=== PATIENT | female | born 1930 | race Caucasian/White ===

== ENCOUNTER 2016-11-02 09:15 | Outpatient (CLI) | payer MEDICARE ==
--- OUTSIDE RECORDS SUMMARY | 2016-11-02 09:18 | XMS | Clinical Summary ---
:1930 Author Organization [facility] Address [address] [place] [address] Phone Care Team Providers Name Role Phone , Primary Care Provider Unavailable Allergies Not on File Current Medications Not on file Active Problems Not on file Social History Tobacco Use Types Packs/Day Years Used Date Never Assessed Sex Assigned at Date Recorded Not on file Last Filed Vital Signs Not on file Plan of Treatment Not on file Results Not on filefrom Last 3 Months
--- NOTE | 2016-11-02 10:44 | RAD ---
TWO VIEWS OF THE CHEST: COMPARISON: None. HISTORY: Chest tightness and cough. FINDINGS: Two views of the chest show normal sized cardiomediastinal silhouette. There is no evidence of conso lidation, mass, or pleural effusion. The bones are unremarkable. IMPRESSION: No evidence of acute cardiopulmonary disease. POS: [facility]
== END 2016-11-02 09:16 | disposition home or self-care (01) ==
LOC: SCSRAD 09:15
PROVIDERS: ATTEND Family Medicine
DX: J20.9 Acute bronchitis, unspecified (principal)
CPT/HCPCS: 71020

== ENCOUNTER 2017-03-16 16:46 | Outpatient (CLI) | payer MEDICARE ==
--- NOTE | 2017-03-16 17:28 | RAD ---
AP PELVIS AND LEFT HIP: 03/16/17 HISTORY: Patient fell ten days ago, left hip and groin pain. There is some mild arthritic changes of both hips. There is no signs of fracture. The bony pelvic ri ng is intact. IMPRESSION: No evidence of fracture. POS: [facility]
--- NOTE | 2017-03-19 16:39 | RAD ---
AP PELVIS AND LEFT HIP: 03/16/17 HISTORY: Patient fell ten days ago, left hip and groin pain. There is some mild arthritic changes of both hips. There is no signs of fracture. The bony pelvic ri ng is intact. IMPRESSION: No evidence of fracture.
== END 2017-03-16 16:47 | disposition home or self-care (01) ==
LOC: SCSRAD 16:46
PROVIDERS: ATTEND Physical Medicine & Rehabilitation
DX: M25.552 Pain in left hip (principal); R10.9 Unspecified abdominal pain
CPT/HCPCS: 72170

== ENCOUNTER 2017-11-02 09:01 | Outpatient (CLI) | payer MEDICARE ==
[2017-11-02 09:54] LABS: ALT (SGPT) 10 U/L (8-55); AST (SGOT) 16 U/L (5-34); Albumin 3.8 g/dL (3.4-4.8); Alkaline Phosphatase 101 U/L (40-150); Anion Gap 9 mmol/L (10-20); BUN (Urea Nitrogen) 11 mg/dL (9.8-20.1); Bilirubin, Total 0.5 mg/dL (0.2-1.2); Calc. Creatinine Clearance 0 mL/min (70-130); Calcium 10.2 mg/dL (7.8-10.44); Carbon Dioxide 29 mmol/L (23-31); Chloride 108 mmol/L (98-107); Estimated GFR-MDRD 63; Globulin 2.6 g/dL (2.4-3.5); Glucose 105 mg/dL (83-110); Potassium 4.3 mmol/L (3.5-5.1); Protein, Total 6.4 g/dL (6.0-8.3); Sodium 142 mmol/L (136-145)
[2017-11-02 10:25] LABS: Free T4 (Free Thyroxine) 0.95 ng/dL (0.70-1.48); Thyroid Stimulating Hormone 1.2184 uIU/mL (0.35-4.94)
--- NOTE | 2017-11-02 11:59 | ULT ---
ABDOMINAL ULTRASOUND: HISTORY: Abdominal pain, predominantly right-sided. FINDINGS: Real-time imaging of the upper abdomen shows the gallbladder to have been removed. There are 2 sligh tly complex hepatic cysts demonstrated, the larger measuring 1.5 and the smaller 1.2 cm in size. The y have some internal septations within them. No suspicious solid masses. The spleen measures 10 mm. The common duct is 6-7 mm. Pancreas is obscured. Right and left kidneys are within normal limits of size and not obstructed. A bdominal aorta and IVC regions appear unremarkable. IMPRESSION: 1. Postop cholecystectomy change. 2. A small hepatic cyst. POS: [facility]
== END 2017-11-02 09:02 ==
LOC: SCSULT 09:01
PROVIDERS: ATTEND Family Medicine
DX: E03.9 Hypothyroidism, unspecified (principal); R10.11 Right upper quadrant pain; R74.8 Abnormal levels of other serum enzymes
CPT/HCPCS: 36415; 76700; 80053; 84439; 84443; 84481

== ENCOUNTER 2018-06-18 15:58 | Outpatient (CLI) | payer MEDICARE ==
--- NOTE | 2018-06-18 16:15 | RAD ---
THREE VIEWS OF THE THORACIC SPINE 06/18/18 HISTORY: T-spine pain for two months. FINDINGS: Three views of the thoracic spine shows wedge compression deformity of the T11 vertebral body with ap proximately 50% height loss. There may also be slight compression of the T12 vertebral body. The vert ebral bodies demonstrate normal alignment without subluxation. Moderate osteophytes are seen througho ut the thoracic spine. IMPRESSION: T11 compression fracture with possible compression fracture of T12. POS: [facility]
== END 2018-06-18 15:59 | disposition home or self-care (01) ==
LOC: SCSRAD 15:58
PROVIDERS: ATTEND Family Medicine
DX: M54.6 Pain in thoracic spine (principal); S22.089A Unspecified fracture of T11-T12 vertebra, initial encounter for closed fracture
CPT/HCPCS: 72072

== ENCOUNTER 2018-12-19 09:36 | Outpatient (CLI) | payer MEDICARE ==
[~2018-12-19 09:36] MED LIST: Iopamidol 300 61% 100 ML VIAL FS ONE
[2018-12-19 10:26] LABS: ALT (SGPT) 16 U/L (8-55); AST (SGOT) 27 U/L (5-34); Albumin 4.2 g/dL (3.4-4.8); Alkaline Phosphatase 100 U/L (40-110); Anion Gap 12 mmol/L (10-20); BUN (Urea Nitrogen) 11 mg/dL (9.8-20.1); Bilirubin, Total 0.5 mg/dL (0.2-1.2); Calc. Creatinine Clearance 0 mL/min (70-130); Calcium 10.2 mg/dL (7.8-10.44); Carbon Dioxide 29 mmol/L (23-31); Chloride 105 mmol/L (98-107); Estimated GFR-MDRD 46; Globulin 2.6 g/dL (2.4-3.5); Glucose 100 mg/dL (83-110); Potassium 4.1 mmol/L (3.5-5.1); Protein, Total 6.8 g/dL (6.0-8.3); Sodium 142 mmol/L (136-145)
[2018-12-19 10:50] LABS: #Basophils 0.1 thou/uL (0.0-0.2); #Eosinphils 0.1 thou/uL (0.0-0.7); #Lymphocytes 1.5 thou/uL (1.20-3.40); #Monocytes 0.7 thou/uL (0.11-0.59); %Basophils 1.8 % (0.0-1.0); %Eosinophils 1.7 % (0.0-10.0); %Lymphocytes 20.6 % (21.0-51.0); %Monocytes 8.8 % (0.0-10.0); %Neutrophils 67.1 % (42.0-75.0); Elliptocytes SLIGHT = 2-5 cells (100X) (0-1/hpf); Hemoglobin 7.6 g/dL (12.0-16.0); Hypochromia MARKED = >30 cells (100X) (0-5/hpf); MDiff Complete? YES; Mean Corpuscular HGB CONC 28.7 g/dL (32.0-36.0); Mean Corpuscular Hemoglobin 19.3 pg (27.0-31.0); Mean Corpuscular Volume 67.2 fL (78.0-98.0); Mean Platelet Volume 7.9 fL (7.4-10.4); Microcytosis MARKED = >30 cells (100X) (0-5/hpf); Platelet Count 302 thou/uL (130-400); RBC Distribution Width 15.6 % (11.5-14.5); Red Blood Cell (RBC) Count 3.94 mill/uL (4.20-5.40); Reflex for Review?? YES; White Blood Cell (WBC) Count 7.4 thou/uL (4.8-10.8)
--- NOTE | 2018-12-19 14:58 | CT ---
CT of abdomen and pelvis: 12/19/2018 COMPARISON: None HISTORY: Abdominal pain, altered bowel function TECHNIQUE: Axial CT imaging at 5 mm intervals from lung bases through pubic symphysis with intravenou s and oral contrast. Coronal and sagittal reformatted imaging obtained. FINDINGS: The imaged lung bases appear unremarkable. No free intraperitoneal air or fluid. There is a cyst within the left lobe of the liver measuring 1.7 cm and within the right lobe of the l iver measuring 1.3 cm. There is a peripheral small hypodense nonspecific lesion within the anterolateral aspect of the left lobe of the liver on axial image 17 measuring 1 cm. Its Hounsfield u nits are greater than expected for a cyst. The spleen, pancreas, and kidneys are grossly unremarkable. There is a small sliding-type hiatal hernia. There is a left adrenal nodule measuring 1.4 cm, with Hounsfield units of less than 0, consistent wit h an adrenal adenoma. There is a probable tiny subcentimeter right adrenal nodule, too small to characterize. There is diverticulosis of the sigmoid colon. There is a focal area of prominent wall thickening of the sigmoid colon within the inferior posterior aspect of the pelvis measuring 5-6 cm in length. This is best seen on axial image 73. In addition, there is prominent circumferential wall thickening involving the descending colon in the mid and dist al region. This area of prominent colonic wall thickening measures approximately 9 cm in length. No significant pericolonic fat stranding is seen. The patient reports a history of appendectomy. No evid ence for bowel obstruction. Multifocal scattered atherosclerotic calcification of the abdominal aorta and its branches noted. No abdominal or pelvic lymphadenopathy. Multilevel lumbar spine degenerative change present. No worrisome lytic or blastic bone lesion. Chron ic appearing fracture of T11 noted. IMPRESSION: There are areas of circumferential wall thickening of the colon, including the mid/distal descending colon and the sigmoid colon. Findings may be on the basis of nonspecific multifocal colitis. Malignancy, particularly within the sigmoid colon, is a possibility. Direct visualization vi a colonoscopy is advised. Nonspecific hypodense lesion within the left lobe of the liver which may be definitively characterize d with CT or MRI of abdomen with and without contrast utilizing a hepatic mass protocol. CODE T
== END 2018-12-19 09:37 | disposition home or self-care (01) ==
LOC: SCSCT 09:36
PROVIDERS: ATTEND Internal Medicine Gastroenterology
DX: R19.4 Change in bowel habit (principal); R10.9 Unspecified abdominal pain; K76.9 Liver disease, unspecified
CPT/HCPCS: 74177; 80053; 85025; 85060

== ENCOUNTER 2018-12-20 18:10 | Inpatient (IN) | payer MEDICARE ==
[2018-12-20] MEDS ORDERED: Senokot S 8.6-50 MG TAB PO PRN (19:34)
[2018-12-20] MEDS ORDERED: Acetaminophen 325 MG TAB PO PRN (19:34)
[2018-12-20] MEDS ORDERED: Sodium Chloride 0.9% 1,000 ML IV SCH (19:45)
[2018-12-20 19:54] VITALS: BMI 27.9
[2018-12-20 20:03] LABS: #Basophils 0.1 thou/uL (0.0-0.2); #Eosinphils 0.1 thou/uL (0.0-0.7); #Lymphocytes 1.8 thou/uL (1.20-3.40); #Monocytes 0.8 thou/uL (0.11-0.59); #Neutrophils 4.2 thou/uL (1.40-6.50); %Basophils 1.3 % (0.0-1.0); %Eosinophils 1.4 % (0.0-10.0); %Lymphocytes 25.9 % (21.0-51.0); %Monocytes 11.5 % (0.0-10.0); %Neutrophils 59.9 % (42.0-75.0); Hemoglobin 7.6 g/dL (12.0-16.0); Mean Corpuscular HGB CONC 31.4 g/dL (32.0-36.0); Mean Corpuscular Hemoglobin 20.6 pg (27.0-31.0); Mean Corpuscular Volume 65.7 fL (78.0-98.0); Mean Platelet Volume 8.8 fL (7.4-10.4); Platelet Count 301 thou/uL (130-400); RBC Distribution Width 15.6 % (11.5-14.5); Red Blood Cell (RBC) Count 3.67 mill/uL (4.20-5.40); Reticulocyte Count 1.8 % (0.5-1.5); White Blood Cell (WBC) Count 7.1 thou/uL (4.8-10.8)
[2018-12-20 20:26] LABS: Anion Gap 12 mmol/L (10-20); BUN (Urea Nitrogen) 11 mg/dL (9.8-20.1); Calc. Creatinine Clearance 47 mL/min (70-130); Calcium 9.9 mg/dL (7.8-10.44); Carbon Dioxide 25 mmol/L (23-31); Chloride 108 mmol/L (98-107); Estimated GFR-MDRD 53; Glucose 88 mg/dL (83-110); Iron 13 ug/dL (50-170); Potassium 3.9 mmol/L (3.5-5.1); Sodium 141 mmol/L (136-145)
[2018-12-20] MEDS ORDERED: ALPRAZolam 0.5 MG TAB PO SCH (21:30)
[2018-12-20] MEDS: Piperacillin/Tazobactam 3.375 GM in Sodium Chloride 0.9% 100 ML IVPB SCH (21:40)
[2018-12-20] MEDS ORDERED: Melatonin 3 MG TAB PO PRN (22:42)
--- NOTE | 2018-12-21 01:02 | HP ---
PRIMARY CARE PROVIDER: Dr. Rodriguez. CHIEF COMPLAINT: Dizziness, diarrhea, and abdominal pain. HISTORY OF PRESENT ILLNESS: This is an 88-year-old female, who initially presents to [facility] after undergoing recent evaluation for persistent abdominal pain with intermittent diarrhea and blood in the stool. The patient states she initially had diarrhea that began soon after 2018 with multiple bouts of watery stool. The patient states she took [id number] remedies with decrease in stool frequency; however, admits to intermittent bouts of diarrhea increasing over the last several weeks. The patient also noted rust colored stool with pink discoloration in the toilet after defecating. The patient denied any dysuria, documented fever, chills, or flank pain. The patient admits to associated decreased appetite with approximate 10+ pound weight loss over the last several months. The patient has been evaluated by her leasing director, Dr. Tena, undergoing CAT scan imaging of her abdomen showing evidence of circumferential wall thickening in the mid and descending colon as well as sigmoid distribution. The patient was also noted on metabolic screening with a hemoglobin of 7.6, previously documented 13.3 on 11/20/2017. The patient states her last endoscopy was approximately 10 years prior to this evaluation and interpreted as negative. The patient denies any associated chest pain, shortness of breath, or recent fall. The patient does admit to increased fatigue, weakness, and general malaise. PAST MEDICAL HISTORY: 1. Hypothyroidism. 2. Chronic kidney disease, stage 3. 3. Hypertension. 4. Gastroesophageal reflux disease. 5. Anxiety. PAST SURGICAL HISTORY: Status post colonoscopy in 2009 with negative findings. CURRENT MEDICATIONS: 1. Citracal one tablet p.o. daily. 2. Ciprofloxacin 500 mg p.o. b.i.d. 3. Flagyl 500 mg p.o. t.i.d. 4. Rosie-D one tablet p.o. daily p.r.n. 5. Lasix 20 mg p.o. daily p.r.n. 6. Lactobacillus one tablet p.o. daily. 7. Levothyroxine 50 mcg p.o. daily. 8. Losartan 100 mg p.o. daily. 9. Melatonin 5 mg p.o. at bedtime p.r.n. 10. Metoprolol 50 mg p.o. daily. 11. Multivitamin 1 tablet p.o. daily. 12. Protonix 20 mg p.o. daily. 13. Ambien 5 mg p.o. at bedtime p.r.n. insomnia. ALLERGIES: ASPIRIN CAUSING INCREASED BRUISING. FAMILY HISTORY: No inheritable diseases per patient report. SOCIAL HISTORY: Resides in [place], [place] in Independent Living. Accompanied by her son in the hospital. No current alcohol, tobacco, or illicit drug use. Functional of all activities of daily living. Relocated to the [facility] area within the last 2 years. . REVIEW OF SYSTEMS: CONSTITUTIONAL: Negative for weight loss or gain, ability to conduct usual activities. SKIN: Negative for rash, itching. EYES: Negative for double vision, pain. ENT/MOUTH: Negative for nose bleeding, neck stiffness, pain, tenderness. CARDIOVASCULAR: Negative for palpitations, dyspnea on exertion, orthopnea. RESPIRATORY: Negative for shortness of breath, wheezing, cough, hemoptysis, fever or night sweats. GASTROINTESTINAL: Negative for poor appetite, abdominal pain, heartburn, nausea, vomiting, constipation, or diarrhea. GENITOURINARY: Negative for urgency, frequency, dysuria, nocturia. MUSCULOSKELETAL: Negative for pain, swelling. NEUROLOGIC/PSYCHIATRIC: Negative for anxiety, depression. ALLERGY/IMMUNOLOGIC: Negative for skin rash, bleeding tendency. Otherwise negative except as stated per HPI. PHYSICAL EXAMINATION: VITAL SIGNS: On admission, blood pressure 121/71, pulse 71, respiratory rate 18, temperature 98.7 degrees Fahrenheit, O2 saturation 98% on room air. GENERAL APPEARANCE: This is an 88-year-old female, appearing younger than stated age. Alert and oriented x3, pleasant, responsive, in no acute distress. HEENT: Pupils are equal, round, reactive to light and accommodation. Extraocular muscles are intact. No scleral icterus. No conjunctival injection. Nares are patent. OP is clear. Teeth in good repair. NECK: Supple. No cervical adenopathy. No thyromegaly. No carotid bruits. No JVD appreciated. Cervical spine with full active and passive range of motion. No meningeal signs noted. CHEST: Lungs are clear to auscultation bilaterally. CARDIOVASCULAR: S1 and S2 with 2/6 systolic ejection murmur in the left upper sternal border. ABDOMEN: Rounded, soft, nontender, and nondistended. Bowel sounds are positive in all 4 quadrants. There is no hepatosplenomegaly. No abdominal bruits. No rebound or guarding appreciated. EXTREMITIES: Warm and dry with fair turgor. No clubbing, cyanosis, or asymmetric edema appreciated. Pulses palpable distally at the dorsalis pedis, posterior tibial, and popliteal arteries bilaterally. Capillary refill less than 2 seconds. NEUROLOGIC: Cranial nerves 2 through 12 are grossly intact. No focal or lateralizing signs appreciated. PERTINENT LABORATORY AND X-RAY FINDINGS: Sodium 141, potassium 3.9, chloride 108, CO2 of 25, BUN 11, creatinine 0.99, estimated GFR 53, glucose 88, calcium 9.9. Serum iron level 13, ferritin less than 2. CBC showed a white blood cell count of 7.1, hemoglobin is 7.6, previously noted 13.3 on 11/20/2017. MCV 66, platelet count 301 with normal differential. Reticulocyte count 1.8. CT of the abdomen and pelvis dated 12/19/2018, showed circumferential wall thickening of the mid and descending colon and sigmoid colon. Nonspecific hypodense lesion in the left lobe of the liver. ASSESSMENT AND PLAN: 1. Symptomatic anemia with microcytic indices and iron deficiency. We will admit to the medical floor. Type and cross match for 1 unit of packed red blood cells and transfuse when available. IV iron infusion x1. Exact etiology of the anemia unclear, likely related to colitis of unclear significance. See #2 below. Repeat CBC in the a.m. 2. Colitis. Questionable infectious process versus inflammatory versus tumor. We will consult GI Service for evaluation and consideration for a colonoscopy. Continue empiric antibiotic therapy with Zosyn 3.375 g IV q.6 hours. Continue IV fluids at 50 mL/h. 3. Chronic kidney disease, stage 3. Avoid nephrotoxic agents and limit contrast exposure. Repeat creatinine in the a.m. 4. Hypertension. Resume home blood pressure regimen and monitor clinical response. 5. Hypothyroidism. Continue levothyroxine 50 mcg daily. 6. Gastroesophageal reflux disease. Continue Protonix 20 mg daily. 7. Prophylaxis. SCDs while in bed. Protonix 40 mg p.o. daily. CODE STATUS: Full. Surrogate medical decision maker is patient's son, Dr. Stephanie Gee. Job ID: [id number]
[2018-12-21] MEDS: Zolpidem Tartrate 5 MG TAB PO PRN (01:51)
[2018-12-21] MEDS: Piperacillin/Tazobactam 3.375 GM in Sodium Chloride 0.9% 100 ML IVPB SCH ×4 (04:17→21:05)
[2018-12-21 05:38] LABS: #Basophils 0.1 thou/uL (0.0-0.2); #Eosinphils 0.1 thou/uL (0.0-0.7); #Lymphocytes 2.2 thou/uL (1.20-3.40); #Monocytes 0.8 thou/uL (0.11-0.59); #Neutrophils 2.7 thou/uL (1.40-6.50); %Basophils 1.6 % (0.0-1.0); %Eosinophils 2.3 % (0.0-10.0); %Monocytes 13.8 % (0.0-10.0); %Neutrophils 45.4 % (42.0-75.0); Hemoglobin 7.9 g/dL (12.0-16.0); Mean Corpuscular HGB CONC 31.8 g/dL (32.0-36.0); Mean Corpuscular Hemoglobin 21.9 pg (27.0-31.0); Mean Corpuscular Volume 68.9 fL (78.0-98.0); Mean Platelet Volume 8.3 fL (7.4-10.4); Platelet Count 211 thou/uL (130-400); RBC Distribution Width 17.9 % (11.5-14.5); Red Blood Cell (RBC) Count 3.59 mill/uL (4.20-5.40); White Blood Cell (WBC) Count 5.9 thou/uL (4.8-10.8)
[2018-12-21 05:57] LABS: Anion Gap 7 mmol/L (10-20); BUN (Urea Nitrogen) 9 mg/dL (9.8-20.1); Calc. Creatinine Clearance 46 mL/min (70-130); Calcium 9.4 mg/dL (7.8-10.44); Carbon Dioxide 28 mmol/L (23-31); Chloride 111 mmol/L (98-107); Estimated GFR-MDRD 52; Glucose 91 mg/dL (83-110); Potassium 3.9 mmol/L (3.5-5.1); Sodium 142 mmol/L (136-145)
[2018-12-21] MEDS: Levothyroxine Sodium 50 MCG TAB PO SCH (06:40)
[2018-12-21] MEDS ORDERED: FLU VACC TS2019-20(65YR UP)/PF 180 MCG/0.5 ML SYRINGE IM ONE (09:00)
[2018-12-21] MEDS ORDERED: Iron Sucrose Complex 100 MG in Sodium Chloride 0.9% 100 ML IVPB SCH (09:00)
[2018-12-21] MEDS: Multivitamin W/ Minerals 1 TAB PO SCH (09:03)
[2018-12-21] MEDS: Losartan 25 MG TAB PO SCH (10:30)
[2018-12-21] MEDS: Pantoprazole 40 MG GRANULES PACKET PO SCH (11:13)
--- NOTE | 2018-12-21 13:05 | PDOC.HOSPP ---
- Subjective Encounter Date: 12/21/18 Encounter Time: 11:02 Subjective: 88 y/o male with Hypothyroidism, CKD, HTN and GERd admitted with worsening frequent loose stools associated with abdominal pain, dizziness and weight loss. Found to habve severe microcytic anemia. Ct showed thickening of descending and sigmoid colon. Feeling better. No fever. - Objective Vital Signs & Weight: Vital Signs (12 hours) Temp Pulse Pulse Resp BP BP Pulse Ox 12/21/18 11:18 97.3 F L 63 16 164/77 H 98 12/21/18 08:35 98 F 67 14 116/62 97 12/21/18 03:54 98.2 F 64 16 121/67 96 12/21/18 02:55 98.6 F 67 18 118/67 95 Weight Weight 163 lb I&O: 12/20/18 12/21/18 12/22/18 06:59 06:59 06:59 Intake Total 350 1150 Balance 350 1150 Result Diagrams: 12/21/18 05:29 12/21/18 05:29 Hospitalist ROS - Medication Medications: Active Medications Generic Name Dose Route Start Last Admin Trade Name Freq PRN Reason Stop Dose Admin Sodium Chloride 1,000 mls @ 50 mls/hr 12/20/18 19:45 12/20/18 21:34 Normal Saline 0.9% IV 12/21/18 15:44 1,000 mls .Q20H SCOORRO Administration Piperacillin Sod/Tazobactam 100 mls @ 200 mls/hr 12/20/18 22:00 12/21/18 11: 12 Sod 3.375 gm/ Sodium Chloride IVPB 100 mls 0400,1000,1600,2200 SOCORRO Administration Iron/Minerals/Multivitamins 1 tab 12/21/18 09:00 12/21/18 09:03 Theragran M PO 1 tab DAILY SOCORRO Administration Levothyroxine Sodium 50 mcg 12/21/18 07:30 12/21/18 06:40 Synthroid PO 50 mcg DAILY-AC SOCORRO Administration Losartan Potassium 100 mg 12/21/18 09:00 12/21/18 10:30 Cozaar PO Not Given DAILY SOCORRO Metoprolol Succinate 50 mg 12/21/18 07:30 12/21/18 06:40 Toprol Xl PO 50 mg DAILY-AC SOCORRO Administration Pantoprazole Sodium 20 mg 12/21/18 09:00 12/21/18 11:13 Protonix PO 20 mg DAILY SOCORRO Administration Zolpidem Tartrate 5 mg 12/20/18 21:20 12/21/18 01:51 Ambien PO 5 mg HS PRN Administration Insomnia - Exam General Appearance: awake alert Eye: PERRL, anicteric sclera ENT: normocephalic atraumatic Neck: supple, symmetric, no JVD Heart: RRR, murmur present Respiratory: no wheezes, no rales, no ronchi, normal chest expansion Gastrointestinal: soft, non-distended, normal bowel sounds Gastrointestinal - other findings: left lower quadrant tenderness noted Extremities: no cyanosis, no edema Neurological: cranial nerve grossly intact, no focal deficits Psychiatric: A&O x 3 Hosp A/P (1) Colitis Code(s): K52.9 - NONINFECTIVE GASTROENTERITIS AND COLITIS, UNSPECIFIED Status : Acute (2) Iron deficiency anemia due to chronic blood loss Code(s): D50.0 - IRON DEFICIENCY ANEMIA SECONDARY TO BLOOD LOSS (CHRONIC) Status: Acute (3) Hypothyroidism Code(s): E03.9 - HYPOTHYROIDISM, UNSPECIFIED Status: Acute (4) HTN (hypertension) Code(s): I10 - ESSENTIAL (PRIMARY) HYPERTENSION Status: Acute - Plan Continue antibiotiic. Monitor H/H and transfuse as needed IV Iron therapy Colonoscopy planned by GI
[2018-12-21] MEDS ORDERED: GoLYTELY 4,000 ml Bottle PO SCH ×2 (13:15→21:00)
[2018-12-21] MEDS: ALPRAZolam 0.5 MG TAB PO PRN (13:41)
[2018-12-21] MEDS ORDERED: Lidocaine 2% 11 ML SYR TOP PRN (14:33)
--- NOTE | 2018-12-21 18:11 | CON ---
DATE OF CONSULTATION: 12/21/2018 REASON FOR CONSULTATION: Diarrhea, abdominal pain, and abnormal GI imaging. CONSULTING PROVIDER: Cyndi Rodas MD HISTORY OF PRESENT ILLNESS: The patient is an 88-year-old female with past medical history of hypothyroidism, chronic kidney disease stage 3, hypertension, GERD, anxiety, and chronic diarrhea, presenting with complaints of increased abdominal pain and continued diarrhea. She states that she has been having intermittent bouts of lower abdominal pain and diarrhea that has been present since June of 2018. Her pain is described as located in the suprapubic region and characterized as a cramping-type sensation, is intermittent, but will last for hours at a time and reaches a severity of approximately 9/10. The pain does not have any clear exacerbating factors, but has only made better with time, and will completely resolve in between episodes. She had been having semi-frequent episodes since June of 2018, occurring around once every 1 to 2 weeks. However, approximately 1 week ago, she had significant worsening of her abdominal pain that lasted for approximately 2 days, prompting further workup and evaluation (of note, this pain occurs more commonly around 10 a.m. than any other portion of the day). With the increase of her abdominal pain, it prompted her outpatient PCP and dredge pipeman (Dr. Tena) to obtain routine blood work as well as a CT scan of the abdomen, showing iron-deficiency anemia and a possible cecal mass respectively. Given these findings, she was subsequently admitted to the hospital for an expedited workup. She also notes that she has been having increased intermittent diarrhea since June of 2018, having approximately 1 soft bowel movement every 1 to 3 days. She describes her bowel movements primarily as soft but formed, but has been intermittently liquid in consistency, however, more recently, it has been having decreased coloration assuming a more dark/gill coloration or rust coloration that turned water pink within the last week. With the increase in her abdominal pain and possible bleeding in her stool, it then prompted her to seek healthcare evaluation as described. Associated symptoms include increased dizziness, decreased appetite, and an unintentional weight loss of 10 pounds over the last 2 months. She currently denies any nausea, vomiting, fevers, chills, overt hematochezia, melena, hematemesis, dysphagia, or odynophagia. REVIEW OF SYSTEMS: A 10-category review of systems was obtained with all responses negative except for the pertinent positives as listed in HPI. PAST MEDICAL HISTORY: As per HPI. PAST SURGICAL HISTORY: Colonoscopy in 2010 with normal results. FAMILY HISTORY: Denies any GI malignancies. SOCIAL HISTORY: Denies any tobacco, alcohol, or illicit drug use. OUTPATIENT MEDICATIONS: Reviewed. ALLERGIES: ASPIRIN. PHYSICAL EXAMINATION: VITAL SIGNS: Temperature 97.3, pulse 63, blood pressure 164/77, respiratory rate 16, saturating 98% on room air. GENERAL: The patient is lying in bed, in no acute distress. Alert and oriented x4. HEENT/NECK: Normocephalic, atraumatic. Neck is supple. No JVD or scleral icterus noted. CARDIOVASCULAR: Regular rate and rhythm. A 3/6 systolic murmur was heard at the left lower sternal border, but no discernible gallops or rubs. RESPIRATORY: Clear to auscultation bilaterally with no discernible wheezes or rales. ABDOMEN: Normoactive bowel sounds. Soft, nondistended. Tenderness to palpation in the lower abdominal quadrants. EXTREMITIES: No cyanosis, clubbing, or edema. LABORATORY DATA: CBC with a white blood cell count of 5.9, hemoglobin 7.9, hematocrit 24.7, platelets 211, MCV 68.9, and RDW 17.9. Chemistry with a sodium of 142, potassium 3.9, chloride 111, CO2 of 28, BUN 9, creatinine 1, and glucose 91. Iron 13, ferritin less than 2. IMAGING DATA: CT of the abdomen and pelvis was obtained on December 19, 2018, which showed multiple cystic lesions within the left lobe of the liver, measuring between 1.3 and 1.7 cm in size and numbering approximately 4. There was a left adrenal nodule measuring 1.4 cm, consistent with adrenal adenoma, diverticulosis of the sigmoid colon was also noted, but there was a focal area of prominent wall thickening of the sigmoid colon, measuring 5 to 6 cm in length. There was also prominent circumferential wall thickening involving the descending colon, measuring 9 cm in length. Both of these findings concerning for an inflammatory, ischemic, or malignant-type process. ASSESSMENT AND PLAN: The patient is an 88-year-old female with past medical history of hypothyroidism, chronic kidney disease stage 3, hypertension, gastroesophageal reflux disease, anxiety, and chronic diarrhea, presenting with increased left lower abdominal pain, diarrhea, abnormal GI imaging. Lower abdominal pain/abnormal gastrointestinal imaging: The patient has been having chronic lower abdominal pain and diarrhea that have been present since 2018 and characterized as a cramping-type sensation, associated with more semi-solid liquid stools intermittently. However, over the last week, she has had significant worsening of this pain in addition to the appearance of a darker- and rust-colored stools concerning for the presence of blood. Current laboratory workup is consistent with an iron-deficiency anemia along with CT findings concerning for an inflammatory, ischemic, or malignant-type process within the left colon. However, she also has multiple small cystic lesions within the liver concerning for metastatic disease at this time with the colon primary being the more likely source. At this time, with the appearance of an iron-deficiency anemia and findings on CT, it is highly concerning for the presence of a malignancy and requires endoscopic evaluation. RECOMMENDATIONS: 1. We would continue to trend her H and H and transfuse as necessary to maintain an H and H of 7/21. 2. Continue to monitor clinically for signs of active GI bleeding. 3. We would place the patient on a clear liquid diet today and n.p.o. at midnight in preparation for the colonoscopy. 4. We will plan for both EGD and colonoscopy tomorrow for intraluminal evaluation. We will order GoLYTELY prep tonight with split prep dosing. 5. We will follow up on infectious stool studies as a possible origin of her current clinical situation. We will continue to follow. Please call with any questions. Job ID: [id number]
[2018-12-22] MEDS: ALPRAZolam 0.5 MG TAB PO PRN ×3 (00:42→21:04)
[2018-12-22] MEDS: Piperacillin/Tazobactam 3.375 GM in Sodium Chloride 0.9% 100 ML IVPB SCH ×2 (03:04→12:08)
[2018-12-22 04:10] LABS: Hemoglobin 8.7 g/dL (12.0-16.0); Mean Corpuscular HGB CONC 31.9 g/dL (32.0-36.0); Mean Corpuscular Hemoglobin 21.9 pg (27.0-31.0); Mean Corpuscular Volume 68.7 fL (78.0-98.0); Mean Platelet Volume 9.1 fL (7.4-10.4); Platelet Count 292 thou/uL (130-400); RBC Distribution Width 18.1 % (11.5-14.5); Red Blood Cell (RBC) Count 3.98 mill/uL (4.20-5.40); White Blood Cell (WBC) Count 7.2 thou/uL (4.8-10.8)
[2018-12-22 04:31] LABS: Albumin 3.9 g/dL (3.4-4.8); Anion Gap 11 mmol/L (10-20); BUN (Urea Nitrogen) 7 mg/dL (9.8-20.1); BUN/Creatinine Ratio 5.98; Calc. Creatinine Clearance 40 mL/min (70-130); Calcium 9.8 mg/dL (7.8-10.44); Carbon Dioxide 27 mmol/L (23-31); Chloride 109 mmol/L (98-107); Estimated GFR-MDRD 44; Glucose 86 mg/dL (83-110); Potassium 3.9 mmol/L (3.5-5.1); Sodium 143 mmol/L (136-145)
[2018-12-22] MEDS: Levothyroxine Sodium 50 MCG TAB PO SCH (06:26)
[2018-12-22] MEDS ORDERED: Iron Sucrose Complex 500 MG in Sodium Chloride 0.9% 250 ML 250 ML IVPB SCH (09:00)
[2018-12-22] MEDS ORDERED: PROPOFOL 200 MG/20 ML VIAL ONE (09:42)
--- NOTE | 2018-12-22 09:44 | OP ---
DATE OF PROCEDURE: 12/22/2018 PROCEDURES PERFORMED: Esophagogastroduodenoscopy with biopsy, colonoscopy with biopsy, and submucosal injection. INDICATION FOR PROCEDURE: Iron deficiency anemia, chronic diarrhea, and lower abdominal pain. DESCRIPTION OF PROCEDURE: After the risks and benefits of the procedures were explained to the patient including risks of bleeding, infection, perforation, reactions to anesthesia, aspiration and/or pain, informed consent was obtained. The patient was then taken to the endoscopy suite, where she was placed in the left lateral decubitus position, followed by introduction of propofol with anesthesia support. Once adequate sedation was achieved, the standard gastroscope was introduced into the mouth with intubation of the esophagus, stomach, and the proximal small intestines with the findings listed below. The patient tolerated the procedure well with no immediate perioperative complications. Upon conclusion of the procedure, all equipment was removed from the patient and the bed was rotated 180 degrees in anticipation of the colonoscopy. Once the patient was in adequate position, a digital rectal examination was performed followed by introduction of the standard colonoscope to approximately 40 to 45 cm past the anal verge. Further progression could not be achieved due to a large colonic mass obstructing further progress. The quality of the prep was good. The patient tolerated the procedure well with no immediate perioperative complications. Upon conclusion of the procedure, all equipment was removed from the patient and she was transferred to PACU in satisfactory condition. EGD FINDINGS: Esophagus: Normal-appearing mucosa was seen in the proximal, mid, and distal esophagus. There was no evidence of erosions, ulcerations, mass, lesions, or active/recent bleeding. Stomach: Normal-appearing mucosa was seen in the gastric cardia, fundus, body, greater curvature, and incisura. Two 3 to 5 mm submucosal nodules were seen in the gastric antrum with biopsies taken of these lesions and placed in a specimen jar for further evaluation. They did not exhibit any abnormal overlying mucosal abnormalities nor did they exhibit any increased erythema or evidence of active/recent bleeding. Normal findings were seen on gastric retroflexion. Duodenum: Normal-appearing mucosa was seen in both the duodenal bulb and second portion of the duodenum. There was no evidence of erosions, ulcerations, mass, lesions, or active/recent bleeding. Random duodenal biopsies were taken from both the duodenal bulb and second portion of the duodenum for evaluation of possible celiac sprue. IMPRESSION: 1. Two 3 to 5 mm submucosal antral nodule status post biopsies. 2. Otherwise normal upper endoscopy. 3. No etiology for the patient's iron deficiency anemia was seen during this examination. COLONOSCOPY FINDINGS: Digital rectal exam: Small external hemorrhoids were seen on external examination as well as increased skin irritation/inflammation secondary to increased diarrhea. Colon findings: A large fungating and ulcerated near obstructive mass was seen at approximately 35 to 40 cm past the anal verge. Attempts to traverse it with the standard colonoscope were unsuccessful, although there was an area of patency within the colon. The mass itself was circumferential and occupied between 90% to 95% of the colonic lumen. Multiple biopsies were taken of this colonic mass and placed in a specimen jar for evaluation. Tattoo placement x2 was then performed on the distal end of the lesion for further reference. However, it was difficult to maintain position for these tattoo placements. Otherwise, normal-appearing mucosa was seen in the distal sigmoid colon and rectum. There were no abnormalities on rectal retroflexion. IMPRESSION: 1. A large ulcerated and fungating colonic mass seen at 35 to 40 cm past the incisors consistent with malignancy, status post biopsies and tattoo placement. 2. Small external hemorrhoids. RECOMMENDATIONS: 1. We will continue to trend the patient's H and H and transfuse as necessary to maintain an H and H of 7/21. 2. Continue to monitor clinically for signs of active GI bleeding. 3. Would consult both General Surgery and Medical Oncology Services for evaluation of this probable colonic malignancy for possible resection and/or chemotherapy respectively. 4. Would obtain a CT of the chest for further staging of this lesion. 5. We will follow up on the biopsy results with further care depending on pathology report. 6. We will place the patient on a clear liquid diet until evaluated by General Surgery. 7. Antibiotics are not necessarily indicated at this time given the findings on EGD and colonoscopy today. We will continue to follow. Please call with any questions. Job ID: [id number]
--- NOTE | 2018-12-22 11:48 | CT ---
CHEST CT WITH CONTRAST: HISTORY: Mass noted in the colon on recent scope. Colon cancer. COMPARISON: None. FINDINGS: Lower neck and axilla: No lymphadenopathy or masses. Mediastinum: No mass, lymphadenopathy hematoma. Heart: Upper normal heart size. No significant pericardial fluid. Aorta: Atherosclerosis. No periaortic fat stranding. Trachea and central bronchi: Patent. Pleural effusion: None. Pneumothorax: None. Right lung: Areas of scar and atelectasis are noted. No suspicious masses or nodules. No consolidatio n. Left lung: There is scarring and atelectasis. No suspicious masses or nodules. No consolidation. Upper abdomen: Hypodensities in the liver are noted. Refer to CT report from 12/19/2018 for further e valuation. On the current study, these hypodensities continue to be incompletely characterized. There is a hypodensity in the right hepatic lobe which may represent a hepatic metastases. Consider l iv mass protocol CT or abdomen MRI for better interrogation. Osseous structures: No lytic or blastic lesions. Chronic compression fracture in the distal thoracic spine is suspected. IMPRESSION: 1. No evidence of a suspicious mass or nodule in the left or right lung. 2. Indeterminate hepatic lesions as described above. Transcribed Date/Time: 12/22/2018 11:54 AM
[2018-12-22] MEDS: Multivitamin W/ Minerals 1 TAB PO SCH (12:08)
[2018-12-22] MEDS: Losartan 25 MG TAB PO SCH (12:08)
[2018-12-22] MEDS: Pantoprazole 40 MG GRANULES PACKET PO SCH (12:15)
--- NOTE | 2018-12-22 15:16 | PDOC.HOSPP ---
- Subjective Encounter Date: 12/22/18 Encounter Time: 11:11 Subjective: 88 y/o male with Hypothyroidism, CKD, HTN and GERd admitted with worsening frequent loose stools associated with abdominal pain, dizziness and weight loss. Found to habve severe microcytic anemia. S/p 1PRBC. Ct showed thickening of descending and sigmoid colon. Colonoscopy showed nearly obstructing fungating colonic mass. Feeling better. No fever. - Objective Vital Signs & Weight: Vital Signs (12 hours) Temp Pulse Resp BP Pulse Ox 12/22/18 11:05 61 16 157/75 H 12/22/18 10:46 97.7 F 61 16 153/68 H 95 12/22/18 10:05 59 L 14 154/74 H 12/22/18 09:35 97.3 F L 70 16 144/64 H 95 12/22/18 05:07 97.5 F L 65 16 128/76 99 Weight Weight 163 lb I&O: 12/21/18 12/22/18 12/23/18 06:59 06:59 06:59 Intake Total 350 5800 Balance 350 5800 Result Diagrams: 12/22/18 03:39 12/22/18 03:39 Hospitalist ROS - Medication Medications: Active Medications Generic Name Dose Route Start Last Admin Trade Name Freq PRN Reason Stop Dose Admin Alprazolam 0.5 mg 12/20/18 21:34 12/22/18 12:08 Xanax PO 0.5 mg DAILYPRN PRN Administration Anxiety Piperacillin Sod/Tazobactam 100 mls @ 200 mls/hr 12/20/18 22:00 12/22/18 12: 08 Sod 3.375 gm/ Sodium Chloride IVPB 100 mls 0400,1000,1600,2200 SOCORRO Administration Iron/Minerals/Multivitamins 1 tab 12/21/18 09:00 12/22/18 12:08 Theragran M PO 1 tab DAILY SOCORRO Administration Levothyroxine Sodium 50 mcg 12/21/18 07:30 12/22/18 06:26 Synthroid PO 50 mcg DAILY-AC SOCORRO Administration Losartan Potassium 100 mg 12/21/18 09:00 12/22/18 12:08 Cozaar PO 100 mg DAILY SOCORRO Administration Metoprolol Succinate 50 mg 12/21/18 07:30 12/22/18 06:26 Toprol Xl PO 50 mg DAILY-AC SOCORRO Administration Pantoprazole Sodium 20 mg 12/21/18 09:00 12/22/18 12:15 Protonix PO 20 mg DAILY SOCORRO Administration Zolpidem Tartrate 5 mg 12/20/18 21:20 12/21/18 01:51 Ambien PO 5 mg HS PRN Administration Insomnia - Exam General Appearance: awake alert Eye: anicteric sclera ENT: normocephalic atraumatic Neck: supple, symmetric, no JVD Heart: RRR Respiratory: no wheezes, no rales, no ronchi, normal chest expansion Gastrointestinal: soft, non-distended, normal bowel sounds Gastrointestinal - other findings: mild LLQ tenderness Extremities: no cyanosis, no edema Neurological: cranial nerve grossly intact, no focal deficits Psychiatric: normal affect, A&O x 3 Hosp A/P (1) Colon cancer Code(s): C18.9 - MALIGNANT NEOPLASM OF COLON, UNSPECIFIED Status: Acute (2) Colitis Code(s): K52.9 - NONINFECTIVE GASTROENTERITIS AND COLITIS, UNSPECIFIED Status : Acute (3) Iron deficiency anemia due to chronic blood loss Code(s): D50.0 - IRON DEFICIENCY ANEMIA SECONDARY TO BLOOD LOSS (CHRONIC) Status: Acute (4) Hypothyroidism Code(s): E03.9 - HYPOTHYROIDISM, UNSPECIFIED Status: Acute (5) HTN (hypertension) Code(s): I10 - ESSENTIAL (PRIMARY) HYPERTENSION Status: Acute - Plan Continue antibiotic. Give IV iron Monitor H/H and transfuse as needed Gen surg and oncology consulted. Restart clear liquid diet.
[2018-12-22] MEDS ORDERED: Iopamidol-370 76% 500 ML 1 ML ONE (16:43)
[2018-12-22] MEDS ORDERED: traMADol HCl 50 MG TAB PO PRN (17:07)
[2018-12-22] MEDS ORDERED: Acetaminophen 500 MG TAB PO PRN (17:07)
[2018-12-22] MEDS ORDERED: Meropenem 2 GM, Admixture Fee 1 EACH in Sodium Chloride 0.9% 100 ML IVPB SCH (17:15)
[2018-12-22] MEDS ORDERED: Ketorolac Tromethamine 30 MG/ML VIAL IVP SCH (17:15)
[2018-12-22] MEDS ORDERED: Acetaminophen 1,000 MG in Premix Bag 1 BAG IVPB SCH (17:15)
[2018-12-22] MEDS ORDERED: Piperacillin/Tazobactam 3.375 GM in Sodium Chloride 0.9% 100 ML IVPB SCH (18:00)
--- NOTE | 2018-12-22 18:06 | CON ---
DATE OF CONSULTATION: HISTORY OF PRESENT ILLNESS: Azucena Gee is an 88-year-old female, who 10 years ago had a colonoscopy that she believes was normal, although may have had a single polyp removed. She cannot recall whether it was that colonoscopy or the one prior. They deferred colonoscopy due to her development of hemorrhoids after the last colonoscopy. The patient was admitted on this hospitalization by the hospitalist on 12/20/2018. She is complaining of dizziness, alteration of her bowel habits, crampy abdominal pain. CAT scan of the abdomen and pelvis suggested tumor or mass in her left colon; small hiatal hernia, sliding; small cyst in the left lobe of the liver. The patient subsequently had a CAT scan of her chest that was unremarkable. Chest x-ray that was unremarkable, and an abdominal ultrasound revealing post cholecystectomy changes and small hepatic cyst. She has a thoracic spine x-ray, which was unremarkable except for a T11 compression fracture with possible compression fracture at T12. She went on to have a colonoscopy with Dr. Matamoros today after undergoing bowel prep performed for her complaints and iron-deficiency anemia, hemoglobin of 7 to 8. Findings were large ulcerated fungating colonic mass, 35-40 cm from the anal verge, with biopsies and tattooed. Mass was circumferential, 90% to 95% obstructive, and the scope could not be passed beyond it. ALLERGIES: REPORTED ASPIRIN, ALTHOUGH SHE REPORTS THIS BRUISING AND NOT A TRUE ALLERGY. SHE STATES SHE HAD A WORKUP AT [facility] AND WAS TOLD THAT SHE SHOULD NOT TAKE ASPIRIN. 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 SOCIAL HISTORY: Tobacco, none. Alcohol, rarely. MEDICATIONS: 1. P.r.n. Xanax. 2. Calcium citrate. 3. Multivitamin. 4. Metoprolol 50 mg daily. 5. Melatonin p.r.n. 6. Losartan potassium 100 mg daily. 7. Furosemide 20 mg p.r.n. 8. Levothyroxine 50 mcg daily. 9. Metronidazole 500 mg. 10. Zolpidem. 11. Protonix. 12. Lactobacillus. 13. Cipro. PAST SURGICAL HISTORY: She has had a laparoscopic cholecystectomy; hysterectomy, bilateral salpingo-oophorectomy for uterine cancer, curative; appendectomy; left shoulder surgery; ORIF of her left leg; skiing accident, ankle surgery. She denies any past cardiac problems. She has seen Dr. Hawthorne in the past for carotid bruit, referred by her dentist. This turned out to be nonobstructive. The patient had an echocardiogram this hospitalization that was unremarkable. CEA level is normal at 1.14. She has received iron therapy. Hemoglobin 8.7. The patient has a history of hypertension. She has been on medications for many years for this. PHYSICAL EXAMINATION: VITAL SIGNS: Height 5 feet and 4 inches, weight 163 pounds, 28 BMI. Temperature 97.7, pulse 61, blood pressure 157/75. HEAD, EARS, EYES, NOSE AND THROAT: Unremarkable. LUNGS: Clear to auscultation. CARDIAC: Regular rate and rhythm without murmur or gallop. ABDOMEN: Soft and nontender. No palpable masses. EXTREMITIES: Unremarkable. No ankle edema. LABORATORY DATA: White count 7, hemoglobin 8.7. Renal function is normal. BUN 7, creatinine 1.17. CEA level 2.91. Sodium 143, potassium 3.9. ASSESSMENT AND PLAN: 1. Sigmoid colon mass, obstructive, but clinically she is not completely obstructed, although she is passing some stool and flatus, her bowel prep was difficult. She has been having intermittent crampy abdominal pains, alteration of her bowel habits. Plan is for continuation of clear liquids today, n.p.o. after midnight, Hibiclens shower tonight, general anesthesia and TAP block tomorrow for laparoscopic sigmoid colon resection. She understands risks and benefits, consents. 2. Hypertension. Job ID: [id number]
[2018-12-22] MEDS: Gabapentin 300 MG CAP PO SCH (21:02)
[2018-12-22] MEDS: Enoxaparin Sodium 40 MG/0.4 ML SYRINGE SC SCH (21:05)
[2018-12-23 05:29] LABS: #Basophils 0.1 thou/uL (0.0-0.2); #Eosinphils 0.3 thou/uL (0.0-0.7); #Lymphocytes 2.2 thou/uL (1.20-3.40); #Monocytes 0.7 thou/uL (0.11-0.59); #Neutrophils 5.8 thou/uL (1.40-6.50); %Basophils 1.1 % (0.0-1.0); %Lymphocytes 24.3 % (21.0-51.0); %Monocytes 7.7 % (0.0-10.0); %Neutrophils 63.9 % (42.0-75.0); Hemoglobin 9.5 g/dL (12.0-16.0); Mean Corpuscular HGB CONC 32.7 g/dL (32.0-36.0); Mean Corpuscular Hemoglobin 22.5 pg (27.0-31.0); Mean Corpuscular Volume 68.9 fL (78.0-98.0); Mean Platelet Volume 9.1 fL (7.4-10.4); Platelet Count 347 thou/uL (130-400); RBC Distribution Width 18.5 % (11.5-14.5); Red Blood Cell (RBC) Count 4.23 mill/uL (4.20-5.40)
[2018-12-23] MEDS: Levothyroxine Sodium 50 MCG TAB PO SCH (05:42)
[2018-12-23 05:50] LABS: Albumin 4.1 g/dL (3.4-4.8); Anion Gap 11 mmol/L (10-20); BUN (Urea Nitrogen) 4 mg/dL (9.8-20.1); BUN/Creatinine Ratio 3.85; Calc. Creatinine Clearance 44 mL/min (70-130); Calcium 9.7 mg/dL (7.8-10.44); Carbon Dioxide 25 mmol/L (23-31); Chloride 108 mmol/L (98-107); Estimated GFR-MDRD 50; Glucose 91 mg/dL (83-110); Phosphorus 3.1 mg/dL (2.3-4.7); Potassium 3.2 mmol/L (3.5-5.1); Sodium 141 mmol/L (136-145)
[2018-12-23] MEDS ORDERED: Sodium Chloride 0.9% 10 ML ONE (07:37)
[2018-12-23] MEDS ORDERED: Bupivacaine/Epinephrine 0.5% 10 ML VIAL ONE ×2 (07:37→07:38)
[2018-12-23] MEDS ORDERED: Midazolam HCl 2 mg/2 ml Vial ONE (08:15)
[2018-12-23] MEDS ORDERED: Fentanyl 100 MCG/2 ML VIAL ONE ×2 (08:15→13:41)
[2018-12-23] MEDS: Sodium Chloride 0.9% 1,000 ML IV SCH ×2 (08:20→17:15)
[2018-12-23] MEDS ORDERED: Potassium Chloride 40 MEQ in Sodium Chloride 0.9% 250 ML 250 ML IVPB SCH (08:30)
[2018-12-23] MEDS: Pantoprazole 40 MG GRANULES PACKET PO SCH (08:33)
[2018-12-23] MEDS: Multivitamin W/ Minerals 1 TAB PO SCH (08:34)
[2018-12-23] MEDS: Gabapentin 300 MG CAP PO SCH ×2 (08:36→21:11)
[2018-12-23] MEDS ORDERED: Dexamethasone 4 mg/ml Vial ONE (09:30)
[2018-12-23] MEDS ORDERED: Fentanyl 250 MCG/5 ML VIAL ONE (09:50)
[2018-12-23] MEDS ORDERED: HYDROmorphone 2 MG/ML VIAL ONE (09:51)
[2018-12-23] MEDS ORDERED: Ketorolac Tromethamine 30 MG/ML VIAL ONE (09:52)
[2018-12-23] MEDS ORDERED: Bupivacaine HCl 0.5%/Epinephrine 1:200,000/PF 30 ml Vial ONE (10:08)
[2018-12-23] MEDS ORDERED: PROPOFOL 200 MG/20 ML VIAL ONE (10:08)
[2018-12-23] MEDS ORDERED: Glycopyrrolate 0.2 MG/ML 5 ML SYRINGE ONE (10:08)
[2018-12-23] MEDS ORDERED: Rocuronium Bromide 10 MG/ML (10ML VIAL) ONE (10:08)
[2018-12-23] MEDS ORDERED: Dexamethasone 20 MG/5 ML VIAL ONE (10:08)
[2018-12-23] MEDS ORDERED: PHENYLEPHRINE-NS 100 MCG/ML 10 ML SYRINGE ONE (10:08)
[2018-12-23] MEDS ORDERED: Ondansetron PF 4 MG/2 ML Vial ONE (10:08)
[2018-12-23] MEDS ORDERED: Scopolamine 1.5 mg/72 hour Patch ONE (10:10)
[2018-12-23] MEDS ORDERED: Acetaminophen 1,000 MG in Premix Bag 1 BAG IVPB PRN (13:22)
[2018-12-23] MEDS ORDERED: Ketorolac Tromethamine 30 MG/ML VIAL IVP PRN (13:22)
[2018-12-23] MEDS ORDERED: Promethazine HCl 25 MG/ML VIAL IM PRN (13:42)
[2018-12-23] MEDS ORDERED: Promethazine HCl 25 MG/ML VIAL SLOW IVP PRN (13:42)
[2018-12-23] MEDS ORDERED: Ondansetron HCl/PF 4 MG/2 ML Vial IVP PRN (13:42)
--- NOTE | 2018-12-23 13:46 | RAD ---
RADIOGRAPH CHEST 2 VIEW: DATE: 12/23/2018 TIME: 1:15 PM HISTORY: 88-year-old female status post central line placement COMPARISON: 11/02/2016 FINDINGS: There is a new left subclavian central venous catheter with distal tip overlying SVC. There is a thin linear border at left apex questionable for tiny 5% or smaller pneumothorax. The visualized lung baltazar are clear of acute infiltrates and edema. Cardiac size is at the upper limits of normal. Later al costophrenic angles are not significantly blunted. IMPRESSION: 1. Status post left subclavian central venous catheter placement. 2. Questionable tiny left apical pneumothorax. 3. Recommend upright inspiration and expiration radiograph
--- NOTE | 2018-12-23 14:36 | RAD ---
RADIOGRAPH CHEST 2 VIEW: DATE: 12/23/2018 TIME: 10:13 PM HISTORY: 88-year-old female status post left sided central line placement. Questionable tiny left apical pneum othorax. COMPARISON: 12/23/2018 1:15 PM TECHNIQUE: AP upright inspiration and expiration images. FINDINGS: No pneumothorax is visible on the inspiration radiograph. On the expiration radiograph, there is a qu estionable faint short linear border overlapping the posterior aspect of the left third rib. It is doubtful that this is a tiny left apical pneumothorax. IMPRESSION: Doubtful left tiny apical pneumothorax, although difficult to completely dismiss. Recommend another i nspiration and expiration radiograph in 6 hours.
[2018-12-23] MEDS ORDERED: Sodium Chloride 0.9% (PF) 10 ML VIAL FS PRN (14:43)
--- NOTE | 2018-12-23 15:19 | OP ---
DATE OF PROCEDURE: 12/23/2018 PREOPERATIVE DIAGNOSES: Sigmoid colon cancer, poor IV access. Note, normal CEA level, negative CAT scan and colonoscope could not be passed beyond the tumor and she will require a followup colonoscopy in 3 to 6 months. ANESTHESIA: General, TAP block. ESTIMATED BLOOD LOSS: 70 mL. BLOOD TRANSFUSION: None. PREOPERATIVE HEMOGLOBIN: 9. DESCRIPTION OF PROCEDURE: The patient was taken to the operating room where under general anesthesia and TAP block, left upper clavicular area was prepared with ChloraPrep. Seldinger technique used to place a triple-lumen catheter, securing with 3-0 silk sutures. Sterile dressing applied. Each port aspirated blood, flushed with saline solution and J-wire had been removed. In the dorsal lithotomy position, abdomen was prepared with ChloraPrep. Buttocks and perineum prepared with Betadine and draped in the routine fashion. Right periumbilical incision made. Pneumoperitoneum to 15 mmHg was obtained with a Veress needle, replaced with a 5 port. Left lower quadrant incision made. Right upper quadrant incision and left upper quadrant incision were made and 5 port placed. Right lower quadrant incision made and a 12 port placed in the right lower quadrant. Sigmoid colon tattoo noted and sigmoid tumor mass appreciated. Left colon mobilized along the pelvic attachments and then dissection of the mesentery into the pelvis accomplished with the patient in Trendelenburg and rotated to the right. A left ureter was kept free of harm at all times and identified. The mesenteric carried down to the rectosigmoid. Dissection was carried up cephalad along the mesentery, identifying the inferior mesenteric arteries, which was dissected free and after noting the presence of the ureter and keeping it free of harm, TANMAY was divided with a white load DIPAK stapler. Left colon mobilized along the peritoneal reflection of Lotus Tote. The colon dissected free from the mesentery in the pelvis and the rectosigmoid circumferentially and a good area of colon identified for the distal transection accomplished this with a DIPAK articulating blue load stapler endoscopic. Once the colon was mobilized, the colon was grasped with a grasper, where it would reach easily into the pelvis and then, the lower midline incision made and the colon brought out and divided with the cautery. At this point, fatty tissue debrided. A pursestring suture of 2-0 Prolene placed and a 33 mm EEA anvil placed and secured with a pursestring suture. Gloves were changed. Wound protector had been used. Specimen submitted to pathology, opened and marking the proximal margin. At this point, pneumoperitoneum was re-established and my paralegal assistant dilated the anus with dilators, placed a 33 mm EEA stapler up to the rectal stump, advancing the post out of the rectal stump near the staple line, identifying it and approximated it to the untorsed proximal colon, approximating the colon within the torque fire range, firing the EEA stapler, loosened it and retrieved the anvil and stapler. Anastomosis was checked under water and there was no leak. Good hemostasis was noted. Irrigant and pneumoperitoneum evacuated. As all instruments removed and the suprapubic fascia was approximated with continuous suture of #1 PDS. All skin incisions irrigated copiously and aggressively and all skin incisions were approximated with interrupted subdermal 4-0 Monocryl and [place] glue applied. Job ID: [id number]
--- NOTE | 2018-12-23 16:49 | PDOC.HOSPP ---
- Subjective Encounter Date: 12/23/18 Encounter Time: 14:45 Subjective: 88 y/o male with Hypothyroidism, CKD, HTN and GERd admitted with worsening frequent loose stools associated with abdominal pain, dizziness and weight loss. Found to habve severe microcytic anemia. S/p 1PRBC. Ct showed thickening of descending and sigmoid colon. Colonoscopy showed nearly obstructing colonic mass. S/p lap sigmoid colon resection earlier today. Sleeping but easily arousable. No fever. - Objective Vital Signs & Weight: Vital Signs (12 hours) Temp Pulse Resp BP Pulse Ox 12/23/18 08:01 98.4 F 65 12 125/68 97 12/23/18 08:00 97 Weight Weight 163 lb I&O: 12/22/18 12/23/18 12/24/18 06:59 06:59 06:59 Intake Total 5800 1680 Balance 5800 1680 Result Diagrams: 12/23/18 04:47 12/23/18 04:46 Additional Labs: Accuchecks 12/23/18 12:57 POC Glucose 116 H Hospitalist ROS - Medication Medications: Active Medications Generic Name Dose Route Start Last Admin Trade Name Freq PRN Reason Stop Dose Admin Alprazolam 0.5 mg 12/20/18 21:34 12/22/18 21:04 Xanax PO 0.5 mg DAILYPRN PRN Administration Anxiety Enoxaparin Sodium 40 mg 12/22/18 21:00 12/22/18 21:05 Lovenox SC 40 mg 2100 SOCORRO Administration Gabapentin 300 mg 12/22/18 21:00 12/23/18 08:36 Neurontin PO Not Given BID SOCORRO Sodium Chloride 1,000 mls @ 100 mls/hr 12/23/18 08:00 12/23/18 08:20 Normal Saline 0.9% IV 1,000 mls .Q10H SOCORRO Administration Iron/Minerals/Multivitamins 1 tab 12/21/18 09:00 12/23/18 08:34 Theragran M PO Not Given DAILY SOCORRO Levothyroxine Sodium 50 mcg 12/21/18 07:30 12/23/18 05:42 Synthroid PO 50 mcg DAILY-AC SOCORRO Administration Metoprolol Succinate 50 mg 12/21/18 07:30 12/23/18 05:42 Toprol Xl PO 50 mg DAILY-AC SOCORRO Administration Pantoprazole Sodium 20 mg 12/21/18 09:00 12/23/18 08:33 Protonix PO Not Given DAILY SOCORRO Zolpidem Tartrate 5 mg 12/20/18 21:20 12/21/18 01:51 Ambien PO 5 mg HS PRN Administration Insomnia - Exam General - other findings: sleeping but arousable. ENT: normocephalic atraumatic Neck: supple, symmetric, no JVD Heart: RRR, murmur present Respiratory: no wheezes, no rales, no ronchi, normal chest expansion Gastrointestinal: soft, normal bowel sounds, diminished bowl sounds Extremities: no cyanosis, no edema Neurological: cranial nerve grossly intact, no focal deficits Psychiatric: A&O x 3 Hosp A/P (1) Colon cancer Code(s): C18.9 - MALIGNANT NEOPLASM OF COLON, UNSPECIFIED Status: Acute (2) Colitis Code(s): K52.9 - NONINFECTIVE GASTROENTERITIS AND COLITIS, UNSPECIFIED Status : Acute (3) Iron deficiency anemia due to chronic blood loss Code(s): D50.0 - IRON DEFICIENCY ANEMIA SECONDARY TO BLOOD LOSS (CHRONIC) Status: Acute (4) Hypothyroidism Code(s): E03.9 - HYPOTHYROIDISM, UNSPECIFIED Status: Acute (5) HTN (hypertension) Code(s): I10 - ESSENTIAL (PRIMARY) HYPERTENSION Status: Acute - Plan Continue supportive care Continue analgesic and antibiotic. Dc Cozaar due to use of toradol. [place] BP is soft. Monitor H/H and transfuse as needed Appreciate Gen surg and oncology input Diet as per gen surg. Follow CXR for suspected pneumothorax.
[2018-12-23] MEDS: Acetaminophen 1,000 MG in Premix Bag 1 BAG IVPB SCH ×2 (17:02→23:16)
[2018-12-23] MEDS: Potassium Chloride 20 MEQ in Lactated Ringer's 1,000 ML IV SCH (17:02)
[2018-12-23] MEDS: Ketorolac Tromethamine 30 MG/ML VIAL IVP SCH ×2 (17:03→23:16)
[2018-12-23] MEDS: ALPRAZolam 0.5 MG TAB PO PRN (17:25)
--- NOTE | 2018-12-23 18:40 | RAD ---
RADIOGRAPH CHEST 1 VIEW: DATE: 12/23/2018 TIME: 6:07 PM HISTORY: 88-year-old female status post central line placement. Questionable left apical pneumothorax. Technique: 2 AP upright images in inspiration and expiration. FINDINGS: No pneumothorax is visible on the current study. IMPRESSION: 1. No pneumothorax. 2. Left subclavian central venous catheter. 3. No acute pulmonary findings
[2018-12-23] MEDS ORDERED: Pantoprazole 40 MG VIAL IVP SCH (21:00)
[2018-12-23] MEDS: Enoxaparin Sodium 40 MG/0.4 ML SYRINGE SC SCH (21:11)
[2018-12-23] MEDS: Zolpidem Tartrate 5 MG TAB PO PRN (23:16)
[2018-12-24] MEDS: Potassium Chloride 20 MEQ in Lactated Ringer's 1,000 ML IV SCH ×2 (00:40→07:48)
[2018-12-24] MEDS: Ketorolac Tromethamine 30 MG/ML VIAL IVP SCH ×4 (06:16→23:07)
[2018-12-24] MEDS: Acetaminophen 1,000 MG in Premix Bag 1 BAG IVPB SCH ×2 (06:16→12:25)
[2018-12-24] MEDS: Sodium Chloride 0.9% 1,000 ML IV SCH (06:17)
[2018-12-24] MEDS: Levothyroxine Sodium 50 MCG TAB PO SCH (06:32)
[2018-12-24 07:07] LABS: Anion Gap 7 mmol/L (10-20); BUN (Urea Nitrogen) 4 mg/dL (9.8-20.1); Calc. Creatinine Clearance 57 mL/min (70-130); Calcium 8.9 mg/dL (7.8-10.44); Carbon Dioxide 25 mmol/L (23-31); Chloride 110 mmol/L (98-107); Estimated GFR-MDRD 67; Glucose 111 mg/dL (83-110); Potassium 3.9 mmol/L (3.5-5.1); Sodium 138 mmol/L (136-145)
[2018-12-24 07:31] LABS: #Lymphocytes 1.3 thou/uL (1.20-3.40); #Monocytes 0.8 thou/uL (0.11-0.59); #Neutrophils 10.9 thou/uL (1.40-6.50); %Basophils 0.1 % (0.0-1.0); %Eosinophils 0.1 % (0.0-10.0); %Lymphocytes 10.3 % (21.0-51.0); %Neutrophils 83.6 % (42.0-75.0); Hypochromia MODERATE=16-30 cells (100X) (0-5/hpf); MDiff Complete? YES; Mean Corpuscular HGB CONC 31.7 g/dL (32.0-36.0); Mean Corpuscular Hemoglobin 22.1 pg (27.0-31.0); Mean Corpuscular Volume 69.5 fL (78.0-98.0); Mean Platelet Volume 8.9 fL (7.4-10.4); Microcytosis MODERATE=15-30 cells (100X) (0-5/hpf); Ovalocytes MODERATE= 6-15 cells (100X) (0-1/hpf); Platelet Count 258 thou/uL (130-400); Platelet Morphology Comment Appears Adequate; Polychromasia MODERATE = 3-4 cells (100X) (0-2/hpf); RBC Distribution Width 18.5 % (11.5-14.5); Red Blood Cell (RBC) Count 3.16 mill/uL (4.20-5.40)
[2018-12-24] MEDS ORDERED: Potassium Chloride 20 MEQ in Lactated Ringer's 1,000 ML IV SCH (07:45)
[2018-12-24] MEDS: Gabapentin 300 MG CAP PO SCH ×2 (08:21→21:34)
[2018-12-24] MEDS: Multivitamin W/ Minerals 1 TAB PO SCH (08:21)
[2018-12-24] MEDS ORDERED: Pantoprazole 40 MG VIAL IVP SCH (09:00)
[2018-12-24] MEDS ORDERED: Furosemide 20 MG TAB PO PRN ×2 (16:42→17:48)
[2018-12-24] MEDS ORDERED: Ibuprofen 600 MG TAB PO PRN (16:45)
[2018-12-24 16:52] LABS: #Basophils 0.1 thou/uL (0.0-0.2); #Eosinphils 0.1 thou/uL (0.0-0.7); #Lymphocytes 2.4 thou/uL (1.20-3.40); #Monocytes 1.1 thou/uL (0.11-0.59); #Neutrophils 10.5 thou/uL (1.40-6.50); %Basophils 0.4 % (0.0-1.0); %Eosinophils 0.7 % (0.0-10.0); %Lymphocytes 16.7 % (21.0-51.0); %Monocytes 7.8 % (0.0-10.0); %Neutrophils 74.5 % (42.0-75.0); Mean Corpuscular HGB CONC 31.6 g/dL (32.0-36.0); Mean Corpuscular Hemoglobin 22.2 pg (27.0-31.0); Mean Corpuscular Volume 70.2 fL (78.0-98.0); Mean Platelet Volume 8.6 fL (7.4-10.4); Platelet Count 280 thou/uL (130-400); RBC Distribution Width 18.7 % (11.5-14.5); Red Blood Cell (RBC) Count 3.15 mill/uL (4.20-5.40); White Blood Cell (WBC) Count 14.1 thou/uL (4.8-10.8)
--- NOTE | 2018-12-24 17:06 | PRG ---
DATE OF SERVICE: 12/24/2018 SUBJECTIVE: Ms. Gee is doing well today. She has not had any nausea or vomiting. Her Monge has been removed. She is voiding without problems. She has had a small amount of bloody liquid stool, which I reassured her is normal post colon resection. OBJECTIVE: VITAL SIGNS: Temperature 98 degrees, pulse 53, respirations 16. LUNGS: Clear to auscultation. CARDIAC: Regular rate and rhythm without murmur or gallop. ABDOMEN: Soft. Good bowel sounds. LABORATORY DATA: Hemoglobin 7 this morning. White count 13, hemoglobin yesterday morning 9.5 preoperatively. Basic metabolic profile is normal. She has a CBC ordered for this evening, results pending. ASSESSMENT AND PLAN: At this point, she is doing well. 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 I have discussed with the family Oncology in the hospital and that we send the patient and family to see Oncology as an outpatient as there is no meaningful discussion or information to make a decision about future chemotherapy. We will arrange outpatient followup. Family requests to see Dr. Bennett. We will arrange this as an outpatient. and advance her diet. Job ID: [id number]
--- NOTE | 2018-12-24 17:47 | PDOC.HOSPP ---
- Subjective Encounter Date: 12/24/18 Encounter Time: 08:30 Subjective: Patient seen and examined for new colon mass/Anemia. No new Melena. No new complaints. No overnight events - Objective Vital Signs & Weight: Vital Signs (12 hours) Temp Pulse Resp BP Pulse Ox 12/24/18 16:53 97.7 F 66 18 146/71 H 93 L 12/24/18 16:00 93 L 12/24/18 11:20 98 F 53 L 16 119/69 96 12/24/18 08:00 98 12/24/18 07:51 97.9 F 62 16 111/59 L 98 Weight Weight 163 lb I&O: 12/23/18 12/24/18 12/25/18 06:59 06:59 06:59 Intake Total 1680 3250 Output Total 1528 Balance 1680 1722 Result Diagrams: 12/24/18 16:40 12/24/18 06:30 Radiology Reviewed by me: Yes (CXR - neg) Hospitalist ROS - Review of Systems Respiratory: denies: cough, dry, shortness of breath, hemoptysis, SOB with excertion, pleuritic pain, sputum, wheezing, other Cardiovascular: denies: chest pain, palpitations, orthopnea, paroxysmal noc. dyspnea, edema, light headedness, other - Medication Medications: Active Medications Generic Name Dose Route Start Last Admin Trade Name Freq PRN Reason Stop Dose Admin Enoxaparin Sodium 40 mg 12/22/18 21:00 12/23/18 21:11 Lovenox SC 40 mg 2100 SOCORRO Administration Gabapentin 300 mg 12/22/18 21:00 12/24/18 08:21 Neurontin PO 300 mg BID SOCORRO Administration Iron/Minerals/Multivitamins 1 tab 12/21/18 09:00 12/24/18 08:21 Theragran M PO 1 tab DAILY SOCORRO Administration Ketorolac Tromethamine 15 mg 12/23/18 18:00 12/24/18 17:23 Toradol IVP 12/28/18 18:01 15 mg Q6HR SOCORRO Administration Levothyroxine Sodium 50 mcg 12/21/18 07:30 12/24/18 06:32 Synthroid PO 50 mcg DAILY-AC SOCORRO Administration Metoprolol Succinate 50 mg 12/21/18 07:30 12/24/18 08:21 Toprol Xl PO 50 mg DAILY-AC SOCORRO Administration Sodium Chloride 10 ml 12/23/18 14:43 12/23/18 21:12 Normal Saline Pf FS 10 ml PRN PRN Administration RECONSTITUTION Tramadol HCl 50 mg 12/22/18 17:07 12/23/18 21:11 Ultram PO 50 mg Q4H PRN Administration Mild Pain (1-3) Zolpidem Tartrate 5 mg 12/20/18 21:20 12/23/18 23:16 Ambien PO 5 mg HS PRN Administration Insomnia - Exam General Appearance: NAD Heart: RRR, no gallops Respiratory: CTAB, no rales Gastrointestinal: soft, normal bowel sounds Extremities: no edema Hosp A/P - Plan DVT proph w/lovenox, DVT proph w/SCDs Symptomatic Anemia Acute blood loss anemia New sigmoid mass s/p resection HTN HLD CKD 3 Hypothyroidism PLAN: Cont supportive care AM labs Ambulate DC IVF later today On full liqd diet Cont Toprol
[2018-12-24] MEDS: ALPRAZolam 0.5 MG TAB PO PRN (21:34)
[2018-12-24] MEDS: Enoxaparin Sodium 40 MG/0.4 ML SYRINGE SC SCH (21:34)
[2018-12-25 04:42] LABS: #Basophils 0.1 thou/uL (0.0-0.2); #Eosinphils 0.2 thou/uL (0.0-0.7); #Lymphocytes 2.3 thou/uL (1.20-3.40); #Monocytes 0.5 thou/uL (0.11-0.59); #Neutrophils 5.5 thou/uL (1.40-6.50); %Basophils 1.2 % (0.0-1.0); %Eosinophils 2.3 % (0.0-10.0); %Lymphocytes 26.9 % (21.0-51.0); %Monocytes 5.8 % (0.0-10.0); %Neutrophils 63.8 % (42.0-75.0); Hemoglobin 6.6 g/dL (12.0-16.0); Mean Corpuscular HGB CONC 32.1 g/dL (32.0-36.0); Mean Corpuscular Hemoglobin 22.6 pg (27.0-31.0); Mean Corpuscular Volume 70.4 fL (78.0-98.0); Mean Platelet Volume 8.4 fL (7.4-10.4); Platelet Count 237 thou/uL (130-400); RBC Distribution Width 18.8 % (11.5-14.5); Red Blood Cell (RBC) Count 2.93 mill/uL (4.20-5.40); White Blood Cell (WBC) Count 8.7 thou/uL (4.8-10.8)
[2018-12-25] MEDS: Levothyroxine Sodium 50 MCG TAB PO SCH (06:27)
[2018-12-25] MEDS: Ketorolac Tromethamine 30 MG/ML VIAL IVP SCH ×4 (06:27→23:11)
--- NOTE | 2018-12-25 07:23 | PRG ---
DATE OF SERVICE: 12/25/2018 SUBJECTIVE: Azucena Gee is doing well today. She is feeling lightheaded, and weak on her way to the bathroom. I have spoken to her son Stephanie Gee who states she has been weak and unsteady for the past several weeks. 97.6, 57, 123/61. On admission, patient had a hemoglobin of 7.6 and was given a unit of blood. This morning, hemoglobin is 6.6, and since she feels unsteady and lightheaded, although her blood pressure and heart rate are normal, I will give her 1 unit of blood. We will monitor today to assure her blood count remains stable. I have discussed with her possibly going to rehab and she is open to that. We will ask Physical Therapy and OT to evaluate her and have Rehab see her screening. It is possible she will be transferred to rehab tomorrow. OBJECTIVE: LUNGS: Clear to auscultation. CARDIAC: Regular rate and rhythm without murmur or gallop. ABDOMEN: Soft. Good bowel sounds. She is having some stool and it was not bloody. EXTREMITIES: Unremarkable. ASSESSMENT AND PLAN: 1. Deconditioning. Consider rehab. 2. Anemia, chronic, preoperative mixed with delusional and intraoperative blood loss which is minimal. We will transfuse 1 unit of blood because of symptoms. 3. Colon cancer. Await pathology staging. No need to consult Oncology at this time. They will see them as an outpatient. Job ID: [id number]
[2018-12-25] MEDS: Gabapentin 300 MG CAP PO SCH ×2 (08:27→21:03)
[2018-12-25] MEDS: Multivitamin W/ Minerals 1 TAB PO SCH (08:27)
[2018-12-25] MEDS ORDERED: Loratadine/Pseudoephedrine 10/240 mg Tablet PO PRN (09:00)
[2018-12-25 17:04] LABS: #Basophils 0.1 thou/uL (0.0-0.2); #Eosinphils 0.3 thou/uL (0.0-0.7); #Lymphocytes 1.9 thou/uL (1.20-3.40); #Monocytes 0.7 thou/uL (0.11-0.59); #Neutrophils 4.6 thou/uL (1.40-6.50); %Eosinophils 3.8 % (0.0-10.0); %Lymphocytes 25.1 % (21.0-51.0); %Monocytes 9.7 % (0.0-10.0); %Neutrophils 60.4 % (42.0-75.0); Hemoglobin 8.3 g/dL (12.0-16.0); Mean Corpuscular HGB CONC 32.4 g/dL (32.0-36.0); Mean Corpuscular Hemoglobin 23.5 pg (27.0-31.0); Mean Corpuscular Volume 72.7 fL (78.0-98.0); Mean Platelet Volume 8.9 fL (7.4-10.4); Platelet Count 247 thou/uL (130-400); RBC Distribution Width 19.7 % (11.5-14.5); Red Blood Cell (RBC) Count 3.53 mill/uL (4.20-5.40); White Blood Cell (WBC) Count 7.6 thou/uL (4.8-10.8)
--- NOTE | 2018-12-25 19:43 | PDOC.HOSPP ---
- Subjective Encounter Date: 12/25/18 Encounter Time: 10:41 Subjective: 88 y/o male with Hypothyroidism, CKD, HTN and GERd admitted with worsening frequent loose stools associated with abdominal pain, dizziness and weight loss. Found to habve severe microcytic anemia. S/p 1PRBC. Ct showed thickening of descending and sigmoid colon. Colonoscopy showed nearly obstructing colonic mass. S/p lap sigmoid colon resection. had orthostatic dizziness earlier. No fever. - Objective Vital Signs & Weight: Vital Signs (12 hours) Temp Pulse Pulse Resp BP BP BP 12/25/18 19:35 98.3 F 80 16 149/71 H 12/25/18 15:48 98.6 F 67 16 132/64 12/25/18 14:02 98.6 F 70 70 16 128/70 128/70 130/73 12/25/18 10:53 98.0 F 60 18 124/75 12/25/18 10:20 97.6 F 58 L 18 145/70 H 12/25/18 08:00 98.1 F 65 16 134/74 BP Pulse Ox 12/25/18 19:35 96 12/25/18 15:48 97 12/25/18 14:02 133/71 95 12/25/18 10:53 95 12/25/18 10:20 95 12/25/18 08:00 95 Weight Weight 163 lb I&O: 12/24/18 12/25/18 12/26/18 06:59 06:59 06:59 Intake Total 3250 4640 1600 Output Total 1528 Balance 1722 4640 1600 Result Diagrams: 12/25/18 16:41 12/24/18 06:30 Hospitalist ROS - Medication Medications: Active Medications Generic Name Dose Route Start Last Admin Trade Name Freq PRN Reason Stop Dose Admin Alprazolam 0.5 mg 12/24/18 16:42 12/24/18 21:34 Xanax PO 0.5 mg HSPRN PRN Administration Anxiety Enoxaparin Sodium 40 mg 12/22/18 21:00 12/24/18 21:34 Lovenox SC 40 mg 2100 SOCORRO Administration Gabapentin 300 mg 12/22/18 21:00 12/25/18 08:27 Neurontin PO 300 mg BID SOCORRO Administration Iron/Minerals/Multivitamins 1 tab 12/21/18 09:00 12/25/18 08:27 Theragran M PO 1 tab DAILY SOCORRO Administration Ketorolac Tromethamine 15 mg 12/23/18 18:00 12/25/18 18:13 Toradol IVP 12/28/18 18:01 15 mg Q6HR SOCORRO Administration Levothyroxine Sodium 50 mcg 12/21/18 07:30 12/25/18 06:27 Synthroid PO 50 mcg DAILY-AC SOCORRO Administration Metoprolol Succinate 50 mg 12/21/18 07:30 12/25/18 08:27 Toprol Xl PO 50 mg DAILY-AC SOCORRO Administration Sodium Chloride 10 ml 12/23/18 14:43 12/23/18 21:12 Normal Saline Pf FS 10 ml PRN PRN Administration RECONSTITUTION Tramadol HCl 50 mg 12/22/18 17:07 12/23/18 21:11 Ultram PO 50 mg Q4H PRN Administration Mild Pain (1-3) Zolpidem Tartrate 5 mg 12/20/18 21:20 12/23/18 23:16 Ambien PO 5 mg HS PRN Administration Insomnia - Exam General Appearance: awake alert Eye: anicteric sclera ENT: normocephalic atraumatic Neck: supple, no JVD Heart: RRR, murmur present Respiratory: no wheezes, no rales, no ronchi, normal chest expansion Gastrointestinal: soft, non-tender, non-distended, normal bowel sounds Extremities: no cyanosis, no edema Neurological: cranial nerve grossly intact, no focal deficits Psychiatric: normal affect, A&O x 3 Hosp A/P (1) Colon cancer Code(s): C18.9 - MALIGNANT NEOPLASM OF COLON, UNSPECIFIED Status: Acute (2) Colitis Code(s): K52.9 - NONINFECTIVE GASTROENTERITIS AND COLITIS, UNSPECIFIED Status : Acute (3) Iron deficiency anemia due to chronic blood loss Code(s): D50.0 - IRON DEFICIENCY ANEMIA SECONDARY TO BLOOD LOSS (CHRONIC) Status: Acute (4) Hypothyroidism Code(s): E03.9 - HYPOTHYROIDISM, UNSPECIFIED Status: Acute (5) HTN (hypertension) Code(s): I10 - ESSENTIAL (PRIMARY) HYPERTENSION Status: Acute - Plan Recieving 1 more PRBC today. Monitor H/H and transfuse as needed Continue analgesic PT/oT to continue. rehab screen get orthostatic vitals..
[2018-12-25] MEDS: Enoxaparin Sodium 40 MG/0.4 ML SYRINGE SC SCH (21:03)
[2018-12-25] MEDS: ALPRAZolam 0.5 MG TAB PO PRN (21:03)
[2018-12-25] MEDS: Zolpidem Tartrate 5 MG TAB PO PRN (23:11)
[2018-12-26] MEDS: Ketorolac Tromethamine 30 MG/ML VIAL IVP SCH ×2 (05:23→12:17)
[2018-12-26 06:04] LABS: #Basophils 0.1 thou/uL (0.0-0.2); #Eosinphils 0.2 thou/uL (0.0-0.7); #Lymphocytes 1.9 thou/uL (1.20-3.40); #Monocytes 0.6 thou/uL (0.11-0.59); #Neutrophils 3.8 thou/uL (1.40-6.50); %Basophils 1.4 % (0.0-1.0); %Eosinophils 3.3 % (0.0-10.0); %Lymphocytes 28.9 % (21.0-51.0); %Monocytes 8.5 % (0.0-10.0); %Neutrophils 57.9 % (42.0-75.0); Mean Corpuscular HGB CONC 31.9 g/dL (32.0-36.0); Mean Corpuscular Hemoglobin 23.6 pg (27.0-31.0); Mean Corpuscular Volume 73.8 fL (78.0-98.0); Mean Platelet Volume 8.8 fL (7.4-10.4); Platelet Count 226 thou/uL (130-400); RBC Distribution Width 20.6 % (11.5-14.5); White Blood Cell (WBC) Count 6.5 thou/uL (4.8-10.8)
[2018-12-26] MEDS: Levothyroxine Sodium 50 MCG TAB PO SCH (06:37)
[2018-12-26] MEDS ORDERED: Iron, Sodium Ferric Gluconate 250 MG in Sodium Chloride 0.9% 100 ML IVPB SCH (07:30)
[2018-12-26] MEDS: Multivitamin W/ Minerals 1 TAB PO SCH (08:21)
[2018-12-26] MEDS: Gabapentin 300 MG CAP PO SCH (08:21)
[2018-12-26] MEDS ORDERED: Polyethylene Glycol 3350 17 GM Packet PO PRN (09:24)
[2018-12-26] MEDS: ALPRAZolam 0.5 MG TAB PO PRN (13:31)
--- NOTE | 2018-12-26 15:07 | PRG ---
DATE OF SERVICE: 12/26/2018 SUBJECTIVE: Azucena Gee is doing well today. She was given 1 unit of blood yesterday because she was feeling weak and unsteady with a hemoglobin of just under 7. She is tolerating a regular diet. She is having bowel movements. OBJECTIVE: VITAL SIGNS: Temperature 98.1 degrees, heart rate 70, blood pressure 150/84. After that 1 unit of blood, her hemoglobin has increased from 6.6 to 8.3 last night and 8.0 this morning. There is no evidence of postoperative bleeding. LUNGS: Clear to auscultation. CARDIAC: Regular rate and rhythm without murmur or gallop. ABDOMEN: Soft, nontender. Surgical wounds well healed. LABORATORY DATA: White count 6.5. ASSESSMENT AND PLAN: 1. Doing well. 2. Anemia. Continue iron therapy and vitamins. 3. Colon cancer. Pathology reveals invasive adenocarcinoma, moderately differentiated, 4.5 cm tumor size in sigmoid colon fungating T4b N1c M0, preoperative CEA level normal. CAT scan of the abdomen and pelvis preoperatively normal. Preoperative CAT scan of the chest, normal. She has some indeterminate densities in the liver probably cysts. Followup outpatient appointment with Dr. Bennett, which has been arranged. HISTORY: An 88-year-old female, admitted on 12/20/2018. I was consulted after Dr. Matamoros performed a colonoscopy revealing an obstructing sigmoid colon lesion. The patient approximately 10 years ago had a colonoscopy, but had problems of hemorrhoids and was reluctant to have another. She complained of dizziness, alteration of bowel habits, abdominal pain. Her family encouraged her to see her doctor, but she was noted to be anemic and CAT scan of abdomen and pelvis suggested a tumor mass in her left colon, small hiatal hernia, small cyst in the left lobe of the liver. She eventually had a CT scan of her chest that was unremarkable. Chest x-ray unremarkable except for T11 compression fracture, possible T12 old. Dr. Matamoros performed a colonoscopy on admission after a bowel prep and revealed a tumor in the sigmoid colon. Biopsies revealed cancer. He was unable to pass the scope beyond the tumor. She was taken to the operating room for laparoscopic sigmoid colon resection and anastomosis 33 mm EEA. Postoperatively, she convalesced, tolerated diet. She was given 1 unit of blood preoperatively, 1 unit of blood postoperatively. She will be going to rehab and then home and follow up in my office in 2 to 3 weeks. Sutures are absorbable. Job ID: [id number]
[2018-12-26 15:27] VITALS: BP 132/70; TEMP 98.5
--- NOTE | 2018-12-27 07:24 | DIS ---
DATE OF ADMISSION: 12/20/2018 DATE OF DISCHARGE: 12/26/2018 PRIMARY CARE PHYSICIAN: Dr. Shelley Rodriguez. DISCHARGE DIAGNOSES: 1. Metastatic colon cancer. 2. Severe anemia. 3. Acute on chronic blood loss anemia. 4. Iron deficiency anemia due to chronic blood loss. 5. Hypothyroidism. 6. Hypertension. 7. Chronic diarrhea. 8. Physical deconditioning. 9. Hypokalemia. CONSULTS: Gastroenterology, General surgery, and Hematology and Oncology. PROCEDURES PERFORMED: 1. EGD with biopsy as well as colonoscopy with biopsy. 2. Sigmoid resection. 3. Left subclavian central line placement. HOSPITAL COURSE: An 88-year-old female with known history of hypothyroidism, hypertension, and gastroesophageal reflux disease, admitted with worsening frequent loose stool associated with abdominal pain, dizziness, and weight loss. The patient was found to have severe microcytic anemia, hence was transfused 1 unit of packed red blood cells. She also received IV iron for iron deficiency anemia with appropriate increase in hemoglobin. GI consult was obtained, and the patient subsequently was evaluated with EGD and colonoscopy. EGD was unremarkable, but colonoscopy showed near obstructing colonic mass. General Surgery consult was obtained, and the patient subsequently have laparoscopic sigmoid colon resection. Postoperatively, the patient had acute drop in hemoglobin, requiring blood transfusion, as well as further treatment with IV iron. She also received PT/OT with improvement. Oncology consult was also obtained, and outpatient followup was recommended. Colonoscopy and surgical biopsy report came back showing metastatic colon cancer. The patient improved and was subsequently discharged to acute rehab for further intense rehab restorative therapy. PHYSICAL EXAMINATION: VITAL SIGNS: Temperature 98.5, pulse 72, respiratory rate 18, SpO2 of 95% on room air, and blood pressure is 132/70. GENERAL: Comfortable, healthy-looking elderly, in no distress. Afebrile. Anicteric. Acyanotic. HEENT: Normocephalic, atraumatic. Oral mucosa is moist. CARDIOVASCULAR: Regular rhythm and rate with normal heart sounds one and two. Systolic murmur noted. RESPIRATORY: Good air entry bilaterally with no crackle or rhonchi or use of accessory muscles. GI: Full, soft, nontender, nondistended with normal bowel sounds. EXTREMITIES: Grossly normal looking atraumatic with no edema or erythema. APPARATUS OPERATOR: Conscious, alert, oriented x3 with appropriate mental status. Cranial nerves 2 through 12 are grossly intact. The patient is ambulant. DISCHARGE DISPOSITION: Inpatient rehab. DISCHARGE CONDITION: Improved. DISCHARGE MEDICATIONS: Please see discharge med rec. TIME SPENT: This discharge took more than 38 minutes. Job ID: [id number]
== END 2018-12-26 17:04 | DRG 330 ==
LOC: SURG B 18:10
PROVIDERS: ADMIT Internal Medicine Gastroenterology; ATTEND Internal Medicine Gastroenterology
PROC: 30233N1 Transfusion of Nonautologous Red Blood Cells into Peripheral Vein, Percutaneous Approach (ICD-10-PCS; 2018-12-20)
PROC: 0DBN8ZX Excision of Sigmoid Colon, Via Natural or Artificial Opening Endoscopic, Diagnostic (ICD-10-PCS; 2018-12-22)
PROC: 0DB78ZX Excision of Stomach, Pylorus, Via Natural or Artificial Opening Endoscopic, Diagnostic (ICD-10-PCS; 2018-12-22)
PROC: 0DB98ZX Excision of Duodenum, Via Natural or Artificial Opening Endoscopic, Diagnostic (ICD-10-PCS; 2018-12-22)
PROC: 0DTN0ZZ Resection of Sigmoid Colon, Open Approach (ICD-10-PCS; principal; 2018-12-23)
DX: C18.7 Malignant neoplasm of sigmoid colon (principal); D62 Acute posthemorrhagic anemia; E03.9 Hypothyroidism, unspecified; N18.3 Chronic kidney disease, stage 3 (moderate); I12.9 Hypertensive chronic kidney disease with stage 1 through stage 4 chronic kidney disease, or unspecified chronic kidney disease; K21.9 Gastro-esophageal reflux disease without esophagitis; F41.9 Anxiety disorder, unspecified; K64.4 Residual hemorrhoidal skin tags; K52.9 Noninfective gastroenteritis and colitis, unspecified; E87.6 Hypokalemia; Z79.899 Other long term (current) drug therapy; Z79.890 Hormone replacement therapy; Z88.8 Allergy status to other drugs, medicaments and biological substances
CPT/HCPCS: 36415; 36416; 36430; 71045; 71260; 74177; 80048; 80053; 80069; 82274; 82378; 82728; 83540; 83550; 83630; 85025; 85027; 85046; 85060; 86850; 86900; 86901; 87324; 87427; 87449; 88305; 88309; 88312; 88361; 93306; C9113; J0131; J0670; J1100; J1170; J1650; J1756; J1885; J2250; J2405; J2543; J2704; J2916; J3010; J3480; J3490; J7050; J7120; P9016; Q9967

== ENCOUNTER 2019-01-23 09:03 | Outpatient (CLI) | payer MEDICARE ==
--- NOTE | 2019-01-23 12:10 | PET ---
PET CT: HISTORY: 88-year-old female with colon cancer. Exam requested for initial staging. Patient had tumor resection 3 weeks ago. TECHNIQUE: PET scanning with CT attenuation correction performed from the base of the brain through the proximal thighs following the intravenous administration of 12 mCi [id number] in the right antecubital fossa. COMPARISON: None. CORRELATION: CT chest of 12/22/[address] abdomen/pelvis of 12/19/18. FINDINGS: There is increased uptake in the region of colonic resection in the pelvis with a SUV of 4. No renaldo hypermetabolism is seen in the neck, chest, axilla, abdomen, pelvis, or inguinal regions. No hypermetabolic liver, adrenal, or skeletal lesions are seen. There is physiologic activity in the GI and tracts, heart, and the visualized portions of the brai n. The CT scan used for attenuation correction demonstrates no evidence of pleural effusions or ascites. IMPRESSION: No evidence of metastatic disease. POS: KRISTOPHER
== END 2019-01-23 09:04 | disposition home or self-care (01) ==
LOC: PET 09:03
PROVIDERS: ATTEND Internal Medicine Hematology & Oncology
DX: C18.7 Malignant neoplasm of sigmoid colon (principal)
CPT/HCPCS: 78815; A9552

== ENCOUNTER 2019-02-10 05:53 | Day surgery (SDC) | payer MEDICARE ==
[2019-02-07 11:26] VITALS: BMI 27.1
[2019-02-10] MEDS ORDERED: EPINEPHrine 1 MG/ML AMP ONE (06:37)
[2019-02-10] MEDS ORDERED: Bupivacaine PF 0.5% 30 ML VIAL ONE (06:37)
[2019-02-10] MEDS ORDERED: Lidocaine 2% PF 5 ML VIAL ONE (06:37)
[2019-02-10] MEDS ORDERED: PROPOFOL 20 ML ONE (06:39)
[2019-02-10] MEDS ORDERED: Sodium Chloride 0.9% 20 ML ONE (06:56)
--- NOTE | 2019-02-10 08:36 | RAD ---
CHEST 1 VIEW: HISTORY: Status post Mediport catheter placement. Comparison: 12/23/2018. FINDINGS: Cardiac silhouette:Enlarged cardiac silhouette. Mediport: Interval placement of a left-sided Mediport catheter with the distal tip projecting over th e cavoatrial junction. Aorta: Atherosclerosis. Pulmonary vessels: Normal. Costophrenic angles: Clear. Lungs: No masses or consolidation. Pneumothorax: None. Osseous abnormalities: None. IMPRESSION: 1. Atherosclerosis 2. Interval placement of a left-sided Mediport catheter. No pneumothorax. Transcribed Date/Time: 02/10/2019 9:09 AM
--- NOTE | 2019-02-10 08:59 | OP ---
DATE OF PROCEDURE: 02/10/2019 PREOPERATIVE DIAGNOSIS: Colon cancer, status post colon resection, T3 lesion. POSTOPERATIVE DIAGNOSIS: Colon cancer, status post colon resection, T3 lesion. PROCEDURE PERFORMED: Left subclavian vein MediPort, low-profile PowerPort. ANESTHESIA: Intravenous sedation, local 0.5% Marcaine, 30 mL mixed with 1% Xylocaine with epinephrine 30 mL. DESCRIPTION OF PROCEDURE: The patient was taken to the operating room, under intravenous sedation neck and chest prepared with ChloraPrep and draped in routine fashion. Local anesthetic was infiltrated in the skin and subcutaneous tissue about the operative site. Infraclavicular approach, left subclavian obtained good return of venous blood from trocar catheter, introduced the J-wire, removing the trocar catheter, enlarging the skin site sharply, creating a subcutaneous pocket with blunt and sharp dissection. Good hemostasis noted. Dilator and Peel-Away sheath placed over the J-wire into the subclavian vein. Dilator and J-wire removed. Catheter placed with the Peel-Away sheath. Peel-away sheath removed. Catheter tip was placed in optimal position in the superior vena cava, tailored to length, connected to MediPort, secured in the pocket with two interrupted suture of 3-0 Prolene, subcutaneous tissue was approximated with 3-0 Monocryl, skin with subdermal 4-0 Monocryl and [place] glue applied. Port accessed with a Bingham needle, noting good return of venous blood and flushed with heparinized saline solution. Fluoroscopic images revealed good line placement and MediPort placement. Job ID: [id number]
--- NOTE | 2019-02-11 07:27 | HP ---
HISTORY OF PRESENT ILLNESS: Azucena Gee is an 88-year-old female, mother of Dr. Stephanie Gee, presented to the hospital with rectal bleeding and anemia. CAT scan of the abdomen and pelvis and colonoscopy revealed a sigmoid colon tumor. The colonoscope could not pass beyond the obstructing tumor 35 to 40 cm from the anal verge sigmoid. This was circumferential. Preoperative CAT scan suggests some thickening of the right colon. The patient's preoperative CEA level was normal. CAT scan otherwise unremarkable. The patient underwent laparoscopic sigmoid colon resection on 12/23/2018, with a general anesthesia and TAP block and had minimal pain postoperatively, in fact, she states she did not have any pain. Tumor size was 4.5 cm. margin invasion into the subserosa T4 N1 M0. She has seen Dr. Bennett, who has recommended a MediPort for chemotherapy. Plan is to place a MediPort under IV sedation local anesthesia, low-profile. She understands risks and benefits, consents. She has seen Dr. Hawthorne's for preop evaluation for chemotherapy and is cleared. MEDICATIONS: 1. Levothyroxine 50 mcg a day. 2. Protonix 20 mg a day. 3. Metoprolol 50 mg a day. 4. Losartan 50 mg a day. 5. Iron 325 mg a.m. 6. Citrucel a.m. 7. Vitamins a.m. 8. Probiotic a.m. 9. Zolpidem . 10. Alprazolam 0.5 mg as needed. ALLERGIES: SHE REPORTS AN ALLERGY TO ASPIRIN, BUT WAS TOLD NOT TO TAKE THIS BECAUSE OF BRUISING ALLERGY. SOCIAL HISTORY: Tobacco, none. Alcohol, rarely. PHYSICAL EXAMINATION: VITAL SIGNS: 158 pounds and 64 inches. 148/70, 59, and 97.7 degrees. HEAD, EARS, EYES, NOSE, AND THROAT: Unremarkable. LUNGS: Clear to auscultation. CARDIAC: Regular rate and rhythm without murmur or gallop. ABDOMEN: Soft. Positive bowel sounds. Surgical wounds well healed. EXTREMITIES: Unremarkable. ASSESSMENT AND PLAN: 1. T4 N1 M0 sigmoid colon cancer status post resection. We will plan MediPort, IV sedation local anesthesia. We will use prior labs and EKGs without repeating them. She understands risks and benefits, consents. 2. She will need a followup colonoscopy with Dr. Tena after she completes chemotherapy as they could not view her proximal colon due to the obstructive sigmoid colon cancer. Job ID: [id number]
== END 2019-02-10 09:48 | disposition home or self-care (01) ==
LOC: SDC 05:53
PROVIDERS: ATTEND Specialist
PROC: 0JH63WZ Insertion of Totally Implantable Vascular Access Device into Chest Subcutaneous Tissue and Fascia, Percutaneous Approach (ICD-10-PCS; principal; 2019-02-10)
PROC: 02HV33Z Insertion of Infusion Device into Superior Vena Cava, Percutaneous Approach (ICD-10-PCS; 2019-02-10)
DX: C18.7 Malignant neoplasm of sigmoid colon (principal); I10 Essential (primary) hypertension; K21.9 Gastro-esophageal reflux disease without esophagitis; E03.9 Hypothyroidism, unspecified; Z79.899 Other long term (current) drug therapy; Z88.8 Allergy status to other drugs, medicaments and biological substances; Z90.49 Acquired absence of other specified parts of digestive tract
CPT/HCPCS: 71045; C1788; J0171; J0690; J1642; J2001; J2704; S0020

== ENCOUNTER 2020-10-04 14:17 | Outpatient (CLI) | payer MEDICARE | END 2020-10-04 14:18 | disposition home or self-care (01) | LOC: SCSRAD 14:17 | PROVIDERS: ATTEND Physical Medicine & Rehabilitation | DX: M25.531 Pain in right wrist (principal); M19.031 Primary osteoarthritis, right wrist; W19.XXXA Unspecified fall, initial encounter ==

== ENCOUNTER 2020-11-22 14:14 | Outpatient (CLI) | payer MEDICARE | END 2020-11-22 14:15 | disposition home or self-care (01) | LOC: SCSRAD 14:14 | PROVIDERS: ATTEND Physical Medicine & Rehabilitation | DX: M25.531 Pain in right wrist (principal); M19.031 Primary osteoarthritis, right wrist; R93.7 Abnormal findings on diagnostic imaging of other parts of musculoskeletal system ==

== ENCOUNTER 2021-06-29 12:40 | Outpatient (CLI) | payer MEDICARE | END 2021-06-29 12:41 | disposition home or self-care (01) | LOC: SCSRAD 12:40 | PROVIDERS: ATTEND Physical Medicine & Rehabilitation | DX: M25.461 Effusion, right knee (principal); M25.561 Pain in right knee; M17.12 Unilateral primary osteoarthritis, left knee; M85.861 Other specified disorders of bone density and structure, right lower leg ==